=== PATIENT | male | born 1975 | race Caucasian/White ===

== ENCOUNTER 2022-10-08 22:21 | Inpatient (IN) | payer MEDICARE, MEDICAID, SELFPAY ==
--- NOTE | 2022-10-09 | ECG_ITS ---
Test Reason : ect Blood Pressure : / mmHG Vent. Rate : 070 BPM Atrial Rate : 070 BPM P-R Int : 142 ms QRS Dur : 084 ms QT Int : 384 ms P-R-T Axes : 077 066 065 degrees QTc Int : 414 ms Normal sinus rhythm Normal ECG No previous ECGs available Referred By: Nikolas Lopez Electronically Signed By:AFIA CHRISTINA
[2022-10-09 00:26] VITALS: BMI 23.0
[2022-10-09] MEDS: LORazepam 1 MG TABLET PO ×3 (00:57→22:19)
[2022-10-09] MEDS: Acetaminophen 325 MG TABLET 650 MG PO ×2 (00:58→09:35)
[2022-10-09] MEDS: Zolpidem Tartrate 5 MG TABLET 10 MG PO (00:58)
[2022-10-09] MEDS: traZODone HCL 50 MG TABLET PO ×2 (00:59→22:19)
--- NOTE | 2022-10-09 02:36 | PC.ADMIT ---
A white, Iranian-speaking male aged 46 years was admitted to the [facility] CV at 2230 following referral from [facility] and the [facility] team. Pt is not known to [facility] but pt reports he has had more than 50 IPLOC in the past. Pt has also had inpatient admissions for Etoh and substances. Pt self-presented to [place] [facility] endorsing SI with plan to jump in front of a train. Pt has a history of numerous suicide attempts. Pt drinks Etoh daily between 2 and 20 or more nips; pt says when he drinks fewer than 5 drinks daily he begins to have withdrawal symptoms. GALARZA was positive for cocaine and marijuana; BAL was 161. Pt had recently been at the [facility] but had left due to pt feeling he needed mental health treatment first. Pt had recently been discharged from [facility] [place] and pt had thought that benzodiazepines prescribed there during admission would be continued upon discharge. Pt felt he was left w/o meds he needed for anxiety. Pt reports current meds not helping and that his outside prescriber was going to switch from lithium.Pt stated he has tried many medications over the years that have not helped; pt said he is interested in finding out if ECT can help him. Pt is recently from his and they are pursuing a divorce. Pt is currently living with his parents and adult sister; housing is stable. Pt has a psychiatric medication provider but no therapist. Pt said is not interested in a therapist at this time. Pt was calm and cooperative on arrival. Pt states anxiety is 6-7/10, depression 8/10, PERAZA pain 3-4/10. Pt denies SI/HI and AH/VH. Pt states he can seek help from staff if needed. Pt reports ongoing difficulty sleeping, with frequent awakening and waking up drenched with sweat. Pt denies medical issues other than a history of right shoulder dislocation. Pt is resting in his room on 5 minute safety checks at this time. Nurse to Nurse done, initial treatment plan done and admission orders obtained.
[2022-10-09 08:00] VITALS: BP 117/65; PULSE 64; RESP 16; TEMP 36.6; O2SAT 96
[2022-10-09 09:12] LABS: Estimated Average Glucose 91 mg/dL; Hemoglobin A1c % 4.8 %
[2022-10-09 09:23] LABS: Alanine Aminotransferase 23 U/L (0-40); Albumin Level 3.6 g/dL (3.5-5.0); Alkaline Phosphatase 28 U/L (39-117); Anion Gap 11 (12-20); Aspartate Amino Transferase 20 U/L (5-37); Bilirubin Total 1.1 mg/dL (0.0-1.0); Blood Urea Nitrogen 17 mg/dL (9-16); Calcium 8.6 mg/dL (8.4-10.2); Carbon Dioxide 25 mmol/L (22-29); Chloride 105 mmol/L (96-108); Cholesterol 225 mg/dL; Creatinine Clr Calc Pharmacy 114.3; Estimated Glomerular Filt Rate > 60; Glucose Fasting 99 mg/dL (60-99); HDL Cholesterol 60 mg/dL; LDL Cholesterol Calculated 126 mg/dl; Sodium 137 mmol/L (135-145); Total Protein 5.9 g/dL (6.5-8.0); Triglycerides 195 mg/dL
[2022-10-09 09:54] LABS: Folate 16.4 ng/mL (> or = 4.0); Thyroid Stimulating Hormone 2.65 uIU/mL (0.32-4.0); Vitamin B12 656 pg/mL (200-900)
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
[2022-10-09] MEDS: LORazepam 1 MG TABLET 2 MG PO ×2 (12:25→18:18)
[2022-10-09] MEDS: Nicotine 21 MG PATCH.TD24 TRANSDERMA (14:24)
[2022-10-09] MEDS: Gabapentin 300 MG CAPSULE PO ×2 (14:25→20:43)
[2022-10-09 17:55] VITALS: BP 133/73; PULSE 69; RESP 16; TEMP 36.1; O2SAT 100
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
[2022-10-09] MEDS: Thiamine HCL 100 MG TABLET PO (20:44)
[2022-10-09] MEDS: Folic Acid 1 MG TABLET PO (20:44)
[2022-10-10] MEDS: traZODone HCL 50 MG TABLET PO ×3 (00:42→22:34)
[2022-10-10] MEDS: hydrOXYzine HCL 25 MG TABLET PO ×3 (00:42→20:47)
[2022-10-10] MEDS: LORazepam 1 MG TABLET 2 MG PO ×3 (02:29→20:51)
[2022-10-10 08:01] VITALS: BP 98/60; PULSE 62; RESP 16; TEMP 36.6; O2SAT 95
[2022-10-10] MEDS: Nicotine 21 MG PATCH.TD24 TRANSDERMA (08:20)
[2022-10-10] MEDS: Thiamine HCL 100 MG TABLET PO (08:21)
[2022-10-10] MEDS: Folic Acid 1 MG TABLET PO (08:21)
[2022-10-10] MEDS: Gabapentin 300 MG CAPSULE PO ×3 (08:22→20:48)
[2022-10-10] MEDS: LORazepam 1 MG TABLET PO ×3 (12:17→16:24)
[2022-10-10] MEDS: Acetaminophen 325 MG TABLET 650 MG PO ×2 (12:17→20:46)
[2022-10-10 16:10] VITALS: BP 119/76; PULSE 84; TEMP 36.3
--- NOTE | 2022-10-10 16:37 | HO.PSYCHPN ---
Subjective Subjective Date of Service: 10/10/22 Reason For Visit: unspecified bipolar disorder, alcohol d/o severe Interim History: calm, cooperative. states he is quite depressed and numerous med trials have not worked. he also relapses to alcohol use when depressed. continuing to detox presently. requesting ECT. Mental Status Exam Mental Status Exam Narrative: Pt is alert and oriented; behavior is cooperative, calm; patient is not in distress; dressed in hospital attire, tatooed, large earring holes, unkempt and scruffy; mood is described as depressed...anxious and affect congruent, downcast; eye contact appropriate; Speech is normal rate but a little lower volume; normal and prosody and not pressured; psychomotor retardation present; thought process is organized and goal directed; Thought content is feeling hopeless but also on tx; otherwise pertinent to relevant topics and without any delusional content, paranoid ideations or grandiosity; no SI/HI/AVH expressed. There is no evidence of perceptual disturbance. Patients insight and judgment appear intact. Diagnostics Vital Signs (24Hr): Vital Signs - 24 hr 10/09/22 17:55 10/10/22 08:01 Temperature 97 F 97.8 F Pulse Rate 69 62 Respiratory Rate 16 16 Blood Pressure 133/73 98/60 Pulse Oximetry 100 95 Oxygen Delivery Method Room Air Room Air BMI result Body Mass Index 23.0 Labs 10/09/22 08:22 Labs: Laboratory Results - last 48 hr 10/09/22 10/09/22 08:22 08:22 Sodium 137 Potassium 4.0 Chloride 105 Carbon Dioxide 25 Anion Gap 11 L BUN 17 H Creatinine 0.89 Estim Creat Clear Calc 114.3 Estimated GFR > 60 Fasting Glucose 99 Estimat Average Glucose 91 Hemoglobin A1c % 4.8 Calcium 8.6 Total Bilirubin 1.1 H AST 20 ALT 23 Alkaline Phosphatase 28 L Total Protein 5.9 L Albumin 3.6 Triglycerides 195 Cholesterol 225 LDL Cholesterol, Calc 126 HDL Cholesterol 60 Vitamin B12 656 Folate 16.4 TSH 2.65 Medications Medications Current Medications Acetaminophen (Acetaminophen 325 Mg Tablet) 650 mg PO Q6H PRN PRN Reason: Headache/Pain Mild Scale (1-3) Last Admin: 10/10/22 12:17 Dose: 650 mg Al Hydroxide/Mg Hydroxide (Magnesium Hydrox/Alum Hydrox 30 Ml Oral.Susp) 30 ml PO Q6H PRN PRN Reason: Heartburn/Nausea Folic Acid (Folic Acid 1 Mg Tablet) 1 mg PO DAILY [facility] Last Admin: 10/10/22 08:21 Dose: 1 mg Gabapentin (Gabapentin 300 Mg Capsule) 300 mg PO TID [facility] Stop: 10/11/22 23:50 Last Admin: 10/10/22 14:15 Dose: 300 mg Gabapentin (Gabapentin 300 Mg Capsule) 300 mg PO BID [facility] Stop: 10/13/22 23:50 Hydroxyzine HCl (Hydroxyzine Hcl 25 Mg Tablet) 25 mg PO Q6H PRN PRN Reason: Anxiety Last Admin: 10/10/22 12:17 Dose: 25 mg Lorazepam (Lorazepam 1 Mg Tablet) 1 mg PO Q2H PRN PRN Reason: CIWA 8-11 Last Admin: 10/10/22 16:24 Dose: 1 mg Lorazepam (Lorazepam 1 Mg Tablet) 2 mg PO Q2H PRN PRN Reason: CIWA 12-15 Lorazepam (Lorazepam 1 Mg Tablet) 3 mg PO Q2H PRN PRN Reason: CIWA > 15; and call Magnesium Hydroxide (Milk Of Magnesia 30 Ml Oral.Susp) 30 ml PO DAILY PRN PRN Reason: Constipation Nicotine (Nicotine 21 Mg Patch.Td24) 21 mg TRANSDERMA DAILY [facility] Last Admin: 10/10/22 08:20 Dose: 21 mg Nicotine Polacrilex (Nicotine Polacrilex 2 Mg Gum) 4 mg BUCCAL Q2H PRN PRN Reason: nicotine cravings Thiamine HCl (Thiamine Hcl 100 Mg Tablet) 100 mg PO DAILY [facility] Last Admin: 10/10/22 08:21 Dose: 100 mg Trazodone HCl (Trazodone Hcl 50 Mg Tablet) 50 mg PO BEDTIME MRX1 PRN PRN Reason: Insomnia Last Admin: 10/10/22 00:42 Dose: 50 mg Zolpidem Tartrate (Zolpidem Tartrate 5 Mg Tablet) 10 mg PO BEDTIME PRN PRN Reason: Insomnia Last Admin: 10/09/22 00:58 Dose: 10 mg Allergies Allergies Allergy/AdvReac Type Severity Reaction Status Date / Time sulfamethoxazole AdvReac Unknown aceptic Verified 10/09/22 07:21 [From Bactrim] meningitis trimethoprim [From Bactrim] AdvReac Unknown aceptic Verified 10/09/22 07:21 meningitis Assessment & Plan Assessment & Plan (1) MDD (major depressive disorder), recurrent episode, severe: Status: Acute Code(s): F33.2 - Major depressive disorder, recurrent severe without psychotic features (2) PTSD (post-traumatic stress disorder): Status: Acute Code(s): F43.10 - Post-traumatic stress disorder, unspecified (3) Alcohol use disorder, severe, dependence: Status: Acute Code(s): F10.20 - Alcohol dependence, uncomplicated (4) Alcohol withdrawal: Status: Acute Code(s): F10.939 - Alcohol use, unspecified with withdrawal, unspecified Plan Patient is a 46-year-old male with history of refractory depression, alcohol abuse who presents for continued depression with SI. Patient reports long history of depression dating back to childhood. He says he gets admitted to psychiatric hospitals about 3 to 4 times a year for severe depression. -chronic alcoholism for years complicates presentation; numerous medication trials many at adequate doses but most often concurrent with alcohol abuse -considering ECT; discussed with patient Plan: 10/09: CV: Q 15 minute checks CIWA with Ativan for alcohol withdrawal Will start gabapentin with taper for alcohol withdrawal Placed ECT consult with Dr. Wooten 10/10: ativan PRN per CIWA protocol. gabapentin taper in place. ECT consult placed to Dr. Wooten. EKG WNL. medical consult placed for ECT clearance. Medication trials: Prozac, Zoloft, Lexapro, Effexor, Wellbutrin, Abilify, Risperdal, Seroquel, Zyprexa, Latuda, Tegretol, lithium Reason for contiued inpatient stay Substantial Risk for: harm to self, inability to function and rapid decompensation Time Spent With Patient Time: Total time managing care of this patient today ____ minutes.
[2022-10-10] MEDS: Zolpidem Tartrate 5 MG TABLET 10 MG PO (21:37)
[2022-10-10] MEDS: Magnesium Hydrox/Alum Hydrox 30 ML ORAL.SUSP PO (22:35)
[2022-10-11] MEDS: LORazepam 1 MG TABLET 2 MG PO ×5 (00:07→19:37)
[2022-10-11 07:00] VITALS: BMI 23.6
[2022-10-11 08:27] VITALS: BP 100/56; PULSE 63; RESP 16; TEMP 36.6; O2SAT 98
[2022-10-11] MEDS: Thiamine HCL 100 MG TABLET PO (08:33)
[2022-10-11] MEDS: Folic Acid 1 MG TABLET PO (08:33)
[2022-10-11] MEDS: Gabapentin 300 MG CAPSULE PO ×3 (08:33→21:30)
[2022-10-11] MEDS: Nicotine 21 MG PATCH.TD24 TRANSDERMA (08:35)
--- NOTE | 2022-10-11 14:11 | HO.PSYCHPN ---
Subjective Subjective Date of Service: 10/11/22 Reason For Visit: unspecified bipolar disorder, alcohol d/o severe Interim History: calm, cooperative. feeling wicked depressed. informed ativan taper would be ordered. seen by dr. marks, not yet by hospitalist for ECT clearance. c/o poor sleep last night. asks for trazodone to be increased to 150 mg at HS with 50 mg PRN, which is done. Mental Status Exam Mental Status Exam Narrative: Pt is alert and oriented; behavior is cooperative, calm; patient is not in distress; dressed in street attire, tatooed, large earring holes, adequately groomed; mood is described as wicked depressed and affect congruent; eye contact appropriate; Speech is normal rate but a little lower volume; normal and prosody and not pressured; psychomotor retardation present; thought process is organized and goal directed; Thought content is on Tx; otherwise pertinent to relevant topics and without any delusional content, paranoid ideations or grandiosity; no SI/HI/AVH expressed. There is no evidence of perceptual disturbance. Patients insight and judgment appear intact. Diagnostics Vital Signs (24Hr): Vital Signs - 24 hr 10/10/22 16:10 10/11/22 08:27 Temperature 97.4 F 97.8 F Pulse Rate 84 63 Respiratory Rate 16 Blood Pressure 119/76 100/56 L Pulse Oximetry 98 Oxygen Delivery Method Room Air BMI result Body Mass Index 23.6 Labs 10/09/22 08:22 Medications Medications Current Medications Acetaminophen (Acetaminophen 325 Mg Tablet) 650 mg PO Q6H PRN PRN Reason: Headache/Pain Mild Scale (1-3) Last Admin: 10/10/22 20:46 Dose: 650 mg Al Hydroxide/Mg Hydroxide (Magnesium Hydrox/Alum Hydrox 30 Ml Oral.Susp) 30 ml PO Q6H PRN PRN Reason: Heartburn/Nausea Last Admin: 10/10/22 22:35 Dose: 30 ml Folic Acid (Folic Acid 1 Mg Tablet) 1 mg PO DAILY [facility] Last Admin: 10/11/22 08:33 Dose: 1 mg Gabapentin (Gabapentin 300 Mg Capsule) 300 mg PO TID FINN Stop: 10/11/22 23:50 Last Admin: 10/11/22 08:33 Dose: 300 mg Gabapentin (Gabapentin 300 Mg Capsule) 300 mg PO BID [facility] Stop: 10/13/22 23:50 Hydroxyzine HCl (Hydroxyzine Hcl 25 Mg Tablet) 25 mg PO Q6H PRN PRN Reason: Anxiety Last Admin: 10/10/22 20:47 Dose: 25 mg Lorazepam (Lorazepam 1 Mg Tablet) 2 mg PO ONCE ONE Stop: 10/11/22 21:01 Lorazepam (Lorazepam 0.5 Mg Tablet) 1.5 mg PO QID [facility] Stop: 10/12/22 21:01 Lorazepam (Lorazepam 1 Mg Tablet) 1 mg PO QID [facility] Stop: 10/13/22 21:01 Magnesium Hydroxide (Milk Of Magnesia 30 Ml Oral.Susp) 30 ml PO DAILY PRN PRN Reason: Constipation Nicotine (Nicotine 21 Mg Patch.Td24) 21 mg TRANSDERMA DAILY [facility] Last Admin: 10/11/22 08:35 Dose: 21 mg Nicotine Polacrilex (Nicotine Polacrilex 2 Mg Gum) 4 mg BUCCAL Q2H PRN PRN Reason: nicotine cravings Thiamine HCl (Thiamine Hcl 100 Mg Tablet) 100 mg PO DAILY [facility] Last Admin: 10/11/22 08:33 Dose: 100 mg Trazodone HCl (Trazodone Hcl 50 Mg Tablet) 150 mg PO BEDTIME FINN Trazodone HCl (Trazodone Hcl 50 Mg Tablet) 50 mg PO BEDTIME PRN PRN Reason: Insomnia Zolpidem Tartrate (Zolpidem Tartrate 5 Mg Tablet) 10 mg PO BEDTIME PRN PRN Reason: Insomnia Last Admin: 10/10/22 21:37 Dose: 10 mg Allergies Allergies Allergy/AdvReac Type Severity Reaction Status Date / Time sulfamethoxazole AdvReac Unknown aceptic Verified 10/09/22 07:21 [From Bactrim] meningitis trimethoprim [From Bactrim] AdvReac Unknown aceptic Verified 10/09/22 07:21 meningitis Assessment & Plan Assessment & Plan (1) MDD (major depressive disorder), recurrent episode, severe: Status: Acute Code(s): F33.2 - Major depressive disorder, recurrent severe without psychotic features (2) PTSD (post-traumatic stress disorder): Status: Acute Code(s): F43.10 - Post-traumatic stress disorder, unspecified (3) Alcohol use disorder, severe, dependence: Status: Acute Code(s): F10.20 - Alcohol dependence, uncomplicated (4) Alcohol withdrawal: Status: Acute Code(s): F10.939 - Alcohol use, unspecified with withdrawal, unspecified Plan Patient is a 46-year-old male with history of refractory depression, alcohol abuse who presents for continued depression with SI. Patient reports long history of depression dating back to childhood. He says he gets admitted to psychiatric hospitals about 3 to 4 times a year for severe depression. -chronic alcoholism for years complicates presentation; numerous medication trials many at adequate doses but most often concurrent with alcohol abuse -considering ECT; discussed with patient Plan: 10/09: CV: Q 15 minute checks CIWA with Ativan for alcohol withdrawal Will start gabapentin with taper for alcohol withdrawal Placed ECT consult with Dr. Marks 10/10: ativan PRN per CIWA protocol. gabapentin taper in place. ECT consult placed to Dr. Marks. EKG WNL. medical consult placed for ECT clearance. 10/11: ativan taper - 8 mg today, then 6, 4, 2. ECT planned for next week. seen by kendrick. awaiting hospitalist for ECT clearance. increased trazodone to 150 QHS with 50 PRN, otherwise no changes to regimen aside from ativan taper. Medication trials: Prozac, Zoloft, Lexapro, Effexor, Wellbutrin, Abilify, Risperdal, Seroquel, Zyprexa, Latuda, Tegretol, lithium Reason for contiued inpatient stay Substantial Risk for: harm to self, inability to function and rapid decompensation Time Spent With Patient Time: Total time managing care of this patient today __25__ minutes.
[2022-10-11] MEDS: Nicotine Polacrilex 2 MG GUM 4 MG BUCCAL ×2 (18:07→21:31)
[2022-10-11 19:25] VITALS: BP 132/64; PULSE 83; TEMP 36.9
[2022-10-11] MEDS: Zolpidem Tartrate 5 MG TABLET 10 MG PO (21:29)
[2022-10-11] MEDS: traZODone HCL 50 MG TABLET 150 MG PO (21:30)
[2022-10-12 06:00] VITALS: BP 96/72; PULSE 94; RESP 16; O2SAT 96
[2022-10-12] MEDS: LORazepam 0.5 MG TABLET 1.5 MG PO ×4 (08:27→19:03)
[2022-10-12] MEDS: Folic Acid 1 MG TABLET PO (08:27)
[2022-10-12] MEDS: Gabapentin 300 MG CAPSULE PO ×2 (08:27→20:03)
[2022-10-12] MEDS: Thiamine HCL 100 MG TABLET PO (08:28)
[2022-10-12] MEDS: Nicotine Polacrilex 2 MG GUM 4 MG BUCCAL (10:09)
--- NOTE | 2022-10-12 12:22 | P.PNPSI_ITS ---
Subjective Subjective Date of Service: 10/12/22 Reason For Visit: unspecified bipolar disorder, alcohol d/o severe Interim History: calm, cooperative. discuss ativan taper over the weekend and possibility of starting ECT as soon as saturday. reports he has not been seen for ECT clearance. only complaint other than depression is insomnia at the moment, requests trazodone be increased to 250 mg as of tonight, which is accommodated. Mental Status Exam Mental Status Exam Narrative: Pt is alert and oriented; behavior is cooperative, calm; patient is not in distress; dressed in street attire, tatooed, large earring holes, adequately groomed; affect constricted, hypo-intense; eye contact appropriate; Speech is normal rate but a little lower volume; normal prosody and not pressured; psychomotor retardation present; thought process is organized and goal directed; Thought content is on Tx; otherwise pertinent to relevant topics and without any delusional content, paranoid ideations or grandiosity; no SI/HI/AVH expressed. There is no evidence of perceptual disturbance. Patients insight and judgment appear intact. Diagnostics Vital Signs (24Hr): Vital Signs - 24 hr 10/11/22 19:25 10/12/22 06:00 Temperature 98.4 F Pulse Rate 83 94 Respiratory Rate 16 Blood Pressure 132/64 96/72 Pulse Oximetry 96 Oxygen Delivery Method Room Air BMI result Body Mass Index 23.6 Labs 10/09/22 08:22 Medications Medications Current Medications Acetaminophen (Acetaminophen 325 Mg Tablet) 650 mg PO Q6H PRN PRN Reason: Headache/Pain Mild Scale (1-3) Last Admin: 10/10/22 20:46 Dose: 650 mg Al Hydroxide/Mg Hydroxide (Magnesium Hydrox/Alum Hydrox 30 Ml Oral.Susp) 30 ml PO Q6H PRN PRN Reason: Heartburn/Nausea Last Admin: 10/10/22 22:35 Dose: 30 ml Folic Acid (Folic Acid 1 Mg Tablet) 1 mg PO DAILY [facility] Last Admin: 10/12/22 08:27 Dose: 1 mg Gabapentin (Gabapentin 300 Mg Capsule) 300 mg PO BID [facility] Stop: 10/13/22 23:50 Last Admin: 10/12/22 08:27 Dose: 300 mg Hydroxyzine HCl (Hydroxyzine Hcl 25 Mg Tablet) 25 mg PO Q6H PRN PRN Reason: Anxiety Last Admin: 02/22/23 20:47 Dose: 25 mg Lorazepam (Lorazepam 0.5 Mg Tablet) 1.5 mg PO QID [facility] Stop: 10/12/22 21:01 Last Admin: 10/12/22 12:16 Dose: 1.5 mg Lorazepam (Lorazepam 1 Mg Tablet) 1 mg PO QID [facility] Stop: 10/13/22 21:01 Lorazepam (Lorazepam 0.5 Mg Tablet) 0.5 mg PO QID [facility] Stop: 10/14/22 21:01 Magnesium Hydroxide (Milk Of Magnesia 30 Ml Oral.Susp) 30 ml PO DAILY PRN PRN Reason: Constipation Nicotine (Nicotine 21 Mg Patch.Td24) 21 mg TRANSDERMA DAILY [facility] Last Admin: 10/12/22 08:30 Dose: Not Given Nicotine Polacrilex (Nicotine Polacrilex 2 Mg Gum) 4 mg BUCCAL Q2H PRN PRN Reason: nicotine cravings Last Admin: 10/12/22 10:09 Dose: 4 mg Thiamine HCl (Thiamine Hcl 100 Mg Tablet) 100 mg PO DAILY [facility] Last Admin: 10/12/22 08:28 Dose: 100 mg Trazodone HCl (Trazodone Hcl 50 Mg Tablet) 50 mg PO BEDTIME PRN PRN Reason: Insomnia Trazodone HCl (Trazodone Hcl 100 Mg Tablet) 250 mg PO BEDTIME FINN Zolpidem Tartrate (Zolpidem Tartrate 5 Mg Tablet) 10 mg PO BEDTIME PRN PRN Reason: Insomnia Last Admin: 10/11/22 21:29 Dose: 10 mg Allergies Allergies Allergy/AdvReac Type Severity Reaction Status Date / Time sulfamethoxazole AdvReac Unknown aceptic Verified 10/09/22 07:21 [From Bactrim] meningitis trimethoprim [From Bactrim] AdvReac Unknown aceptic Verified 10/09/22 07:21 meningitis Assessment & Plan Assessment & Plan (1) MDD (major depressive disorder), recurrent episode, severe: Status: Acute Code(s): F33.2 - Major depressive disorder, recurrent severe without psychotic features (2) PTSD (post-traumatic stress disorder): Status: Acute Code(s): F43.10 - Post-traumatic stress disorder, unspecified (3) Alcohol use disorder, severe, dependence: Status: Acute Code(s): F10.20 - Alcohol dependence, uncomplicated (4) Alcohol withdrawal: Status: Acute Code(s): F10.939 - Alcohol use, unspecified with withdrawal, unspecified Plan Patient is a 46-year-old male with history of refractory depression, alcohol abuse who presents for continued depression with SI.? Patient reports long history of depression dating back to childhood.? He says he gets admitted to psychiatric hospitals about 3 to 4 times a year for severe depression.? -chronic alcoholism for years complicates presentation; numerous medication trials many at adequate doses but most often concurrent with alcohol abuse -considering ECT; discussed with patient Plan: 10/09: CV: Q 15 minute checks CIWA with Ativan for alcohol withdrawal Will start gabapentin with taper for alcohol withdrawal Placed ECT consult with Dr. Wooten 10/10: ativan PRN per CIWA protocol.? gabapentin taper in place. ECT consult placed to Dr. Wooten. EKG WNL. medical consult placed for ECT clearance. 10/11: ativan taper - 8 mg today, then 6, 4, 2. ECT planned for next week. seen by kendrick. awaiting hospitalist for ECT clearance. increased trazodone to 150 QHS with 50 PRN, otherwise no changes to regimen aside from ativan taper. 10/12: ativan taper - 6 mg today, 4 saturday, 2 saturday[address] [facility] will arrange for ECT clearance per personal communication. increased trazodone to 250 mg QHS per pt request, otherwise no changes in mgmt. awaiting ECT clearance and scheduling. Medication trials: Prozac, Zoloft, Lexapro, Effexor, Wellbutrin, Abilify, Risperdal, Seroquel, Zyprexa, Latuda, Tegretol, lithium Reason for contiued inpatient stay Substantial Risk for: harm to self, inability to function and rapid decompensation Time Spent With Patient Time: Total time managing care of this patient today _25___ minutes.
--- NOTE | 2022-10-12 12:27 | PM.EVENT ---
Event Note Date of Service: 10/12/22 Event Note: Patient has no hx brain mass or reported anesthesia complications Has hx of alcohol withdrawal seizure, not on seizure medications as outpatient EKG normal No known contraindications, can proceed with ECT if needed. Time Spent With Patient Time: Total time managing care of this patient today ____ minutes.
[2022-10-12 19:00] VITALS: BP 111/75; PULSE 96; RESP 14; TEMP 36.8
[2022-10-12] MEDS: Zolpidem Tartrate 5 MG TABLET 10 MG PO (20:02)
[2022-10-12] MEDS: traZODone HCL 100 MG TABLET 250 MG PO (20:02)
[2022-10-12] MEDS: Acetaminophen 325 MG TABLET 650 MG PO (20:05)
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
[2022-10-12] MEDS: hydrOXYzine HCL 25 MG TABLET PO (23:18)
[2022-10-12] MEDS: traZODone HCL 50 MG TABLET PO (23:18)
[2022-10-13 08:00] VITALS: BP 106/65; PULSE 78; TEMP 36.8; O2SAT 97
[2022-10-13] MEDS: Thiamine HCL 100 MG TABLET PO (08:32)
[2022-10-13] MEDS: Folic Acid 1 MG TABLET PO (08:32)
[2022-10-13] MEDS: LORazepam 1 MG TABLET PO ×4 (08:32→20:43)
[2022-10-13] MEDS: Gabapentin 300 MG CAPSULE PO ×2 (08:32→20:42)
[2022-10-13] MEDS: Ondansetron ODT 4 MG TAB.RAPDIS TRANSLINGU (10:38)
--- NOTE | 2022-10-13 12:25 | HO.PSYCHPN ---
Subjective Subjective Date of Service: 10/13/22 Reason For Visit: unspecified bipolar disorder, alcohol d/o severe Interim History: Patient reports he is feeling anxious. We discuss ECT. He feels that because of his ETOH withdrawals he won't be ready by Saturday. He would like to start Saturday instead. He was seen by medicine for clearance. He slept somewhat better. Denies SI. Mental Status Exam Mental Status Exam Narrative: Has multiple tattoos Patient Appearance: Appropriate Patient Orientation: Person, Place, Time and Situation Level of Consciousness: Awake and Appropriate Patient Behavior: Appropriate, Talkative and Cooperative Mood Description: Depressed and Blunted Affect Description: Appropriate and Constricted Patient Cognition Impaired: No Ability to Follow Directions: Good Speech Pattern: Clear Memory Description: Intact Diagnostics Vital Signs (24Hr): Vital Signs - 24 hr 10/13/22 08:00 10/13/22 18:00 Temperature 98.2 F 98.7 F Pulse Rate 78 86 Blood Pressure 106/65 115/55 L Pulse Oximetry 97 98 Oxygen Delivery Method Room Air Room Air BMI result Body Mass Index 23.6 Labs 10/09/22 08:22 Medications Medications Current Medications Acetaminophen (Acetaminophen 325 Mg Tablet) 650 mg PO Q6H PRN PRN Reason: Headache/Pain Mild Scale (1-3) Last Admin: 10/12/22 20:05 Dose: 650 mg Al Hydroxide/Mg Hydroxide (Magnesium Hydrox/Alum Hydrox 30 Ml Oral.Susp) 30 ml PO Q6H PRN PRN Reason: Heartburn/Nausea Last Admin: 10/10/22 22:35 Dose: 30 ml Folic Acid (Folic Acid 1 Mg Tablet) 1 mg PO DAILY [facility] Last Admin: 10/13/22 08:32 Dose: 1 mg Gabapentin (Gabapentin 300 Mg Capsule) 300 mg PO BID [facility] Stop: 10/13/22 23:50 Last Admin: 10/13/22 20:42 Dose: 300 mg Hydroxyzine HCl (Hydroxyzine Hcl 25 Mg Tablet) 25 mg PO Q6H PRN PRN Reason: Anxiety Last Admin: 10/12/22 23:18 Dose: 25 mg Lorazepam (Lorazepam 0.5 Mg Tablet) 0.5 mg PO QID [facility] Stop: 10/14/22 21:01 Magnesium Hydroxide (Milk Of Magnesia 30 Ml Oral.Susp) 30 ml PO DAILY PRN PRN Reason: Constipation Nicotine (Nicotine 21 Mg Patch.Td24) 21 mg TRANSDERMA DAILY [facility] Last Admin: 10/13/22 08:36 Dose: Not Given Nicotine Polacrilex (Nicotine Polacrilex 2 Mg Gum) 4 mg BUCCAL Q2H PRN PRN Reason: nicotine cravings Last Admin: 10/12/22 10:09 Dose: 4 mg Ondansetron HCl (Ondansetron Odt 4 Mg Tab.Rapdis) 4 mg TRANSLINGU Q6H PRN PRN Reason: nausea vomiting Last Admin: 10/13/22 10:38 Dose: 4 mg Thiamine HCl (Thiamine Hcl 100 Mg Tablet) 100 mg PO DAILY [facility] Last Admin: 10/13/22 08:32 Dose: 100 mg Trazodone HCl (Trazodone Hcl 50 Mg Tablet) 50 mg PO BEDTIME PRN PRN Reason: Insomnia Last Admin: 10/12/22 23:18 Dose: 50 mg Trazodone HCl (Trazodone Hcl 100 Mg Tablet) 250 mg PO BEDTIME [facility] Last Admin: 10/13/22 20:56 Dose: 250 mg Zolpidem Tartrate (Zolpidem Tartrate 5 Mg Tablet) 10 mg PO BEDTIME PRN PRN Reason: Insomnia Last Admin: 10/13/22 20:41 Dose: 10 mg Allergies Allergies Allergy/AdvReac Type Severity Reaction Status Date / Time sulfamethoxazole AdvReac Unknown aceptic Verified 10/09/22 07:21 [From Bactrim] meningitis trimethoprim [From Bactrim] AdvReac Unknown aceptic Verified 10/09/22 07:21 meningitis Assessment & Plan Assessment & Plan (1) MDD (major depressive disorder), recurrent episode, severe: Status: Acute Code(s): F33.2 - Major depressive disorder, recurrent severe without psychotic features (2) PTSD (post-traumatic stress disorder): Status: Acute Code(s): F43.10 - Post-traumatic stress disorder, unspecified (3) Alcohol use disorder, severe, dependence: Status: Acute Code(s): F10.20 - Alcohol dependence, uncomplicated Plan Patient is a 46-year-old male with history of refractory depression, alcohol abuse who presents for continued depression with SI.? Patient reports long history of depression dating back to childhood.? He says he gets admitted to psychiatric hospitals about 3 to 4 times a year for severe depression.? -chronic alcoholism for years complicates presentation; numerous medication trials many at adequate doses but most often concurrent with alcohol abuse -considering ECT; discussed with patient Plan: 10/09: CV: Q 15 minute checks CIWA with Ativan for alcohol withdrawal Will start gabapentin with taper for alcohol withdrawal Placed ECT consult with Dr. Wooten 10/10: ativan PRN per CIWA protocol.? gabapentin taper in place. ECT consult placed to Dr. Wooten. EKG WNL. medical consult placed for ECT clearance. 10/11: ativan taper - 8 mg today, then 6, 4, 2. ECT planned for next week. seen by kendrick. awaiting hospitalist for ECT clearance. increased trazodone to 150 QHS with 50 PRN, otherwise no changes to regimen aside from ativan taper. 10/12: ativan taper - 6 mg today, 4 saturday, 2 saturday. [facility] will arrange for ECT clearance per personal communication. increased trazodone to 250 mg QHS per pt request, otherwise no changes in mgmt. awaiting ECT clearance and scheduling. Medication trials: Prozac, Zoloft, Lexapro, Effexor, Wellbutrin, Abilify, Risperdal, Seroquel, Zyprexa, Latuda, Tegretol, lithium Reason for contiued inpatient stay Substantial Risk for: harm to self, inability to function and rapid decompensation Time Spent With Patient Time: Total time managing care of this patient today ____ minutes.
[2022-10-13 18:00] VITALS: BP 115/55; PULSE 86; TEMP 37.1; O2SAT 98
[2022-10-13] MEDS: Zolpidem Tartrate 5 MG TABLET 10 MG PO (20:41)
[2022-10-13] MEDS: traZODone HCL 100 MG TABLET 250 MG PO ×2 (20:56→23:01)
--- NOTE | 2022-10-13 23:02 | PC.NURSE ---
Addendum entered by Mariia Dow RN 10/13/22 23:06: Vital signs were obtained, blood pressure 115/59 with heart rate 78 using an automated cuff on the left upper arm, with patient in a seated position. Original Note: Patient has had his night medications, including Ambien 10 mg po and Trazadone 250 mg. po. He is still wide awake and stating I can't sleep, I'm wide awake. The last time I was on a benzo taper I was up for seven (7) days in a row. TW gave patient another dose of Trazadone 250 mg po as a repeat dose, as ordered.
[2022-10-13 23:06] VITALS: BP 115/59; PULSE 78
[2022-10-13] MEDS: Nicotine Polacrilex 2 MG GUM 4 MG BUCCAL (23:19)
[2022-10-14 06:00] VITALS: BP 110/60; PULSE 80
[2022-10-14] MEDS: Folic Acid 1 MG TABLET PO (08:51)
[2022-10-14] MEDS: LORazepam 0.5 MG TABLET PO ×4 (08:51→19:43)
[2022-10-14] MEDS: Thiamine HCL 100 MG TABLET PO (08:51)
--- NOTE | 2022-10-14 12:35 | P.PNPSI_ITS ---
Subjective Subjective Date of Service: 10/14/22 Reason For Visit: unspecified bipolar disorder, alcohol d/o severe Interim History: Patient reports he continues feeling anxious and having insomnia in spite of the medications he takes at HS. He reports he was on Seroquel in the past and is willing to try it again to see if it helps him sleep. He feels the Ativan taper is going too fast and asking to extend the taper. He is anxious appearing. He is not having any VS instability. We discuss ECT. He feels that because of his ETOH withdrawals he won't be ready by Saturday. He would like to start Saturday instead. He was seen by medicine for clearance. Denies SI. Mental Status Exam Mental Status Exam Narrative: Has multiple tattoos Patient Appearance: Appropriate Patient Orientation: Person, Place, Time and Situation Level of Consciousness: Awake and Appropriate Patient Behavior: Appropriate, Talkative and Cooperative Mood Description: Depressed and Blunted Affect Description: Appropriate and Constricted Patient Cognition Impaired: No Ability to Follow Directions: Good Speech Pattern: Clear Memory Description: Intact Diagnostics Vital Signs (24Hr): Vital Signs - 24 hr 10/13/22 23:06 10/14/22 06:00 10/14/22 19:55 Temperature 97.8 F Pulse Rate 78 80 73 Blood Pressure 115/59 L 110/60 97/55 L Pulse Oximetry 98 Oxygen Delivery Method Room Air BMI result Body Mass Index 23.6 Labs 10/09/22 08:22 Medications Medications Current Medications Acetaminophen (Acetaminophen 325 Mg Tablet) 650 mg PO Q6H PRN PRN Reason: Headache/Pain Mild Scale (1-3) Last Admin: 10/12/22 20:05 Dose: 650 mg Al Hydroxide/Mg Hydroxide (Magnesium Hydrox/Alum Hydrox 30 Ml Oral.Susp) 30 ml PO Q6H PRN PRN Reason: Heartburn/Nausea Last Admin: 10/10/22 22:35 Dose: 30 ml Folic Acid (Folic Acid 1 Mg Tablet) 1 mg PO DAILY [facility] Last Admin: 10/14/22 08:51 Dose: 1 mg Hydroxyzine HCl (Hydroxyzine Hcl 25 Mg Tablet) 25 mg PO Q6H PRN PRN Reason: Anxiety Last Admin: 10/12/22 23:18 Dose: 25 mg Lorazepam (Lorazepam 0.5 Mg Tablet) 0.5 mg PO QID [facility] Stop: 10/15/22 21:01 Last Admin: 10/14/22 19:43 Dose: 0.5 mg Magnesium Hydroxide (Milk Of Magnesia 30 Ml Oral.Susp) 30 ml PO DAILY PRN PRN Reason: Constipation Nicotine (Nicotine 21 Mg Patch.Td24) 21 mg TRANSDERMA DAILY [facility] Last Admin: 10/14/22 08:51 Dose: Not Given Nicotine Polacrilex (Nicotine Polacrilex 2 Mg Gum) 4 mg BUCCAL Q2H PRN PRN Reason: nicotine cravings Last Admin: 10/14/22 15:49 Dose: 4 mg Ondansetron HCl (Ondansetron Odt 4 Mg Tab.Rapdis) 4 mg TRANSLINGU Q6H PRN PRN Reason: nausea vomiting Last Admin: 10/13/22 10:38 Dose: 4 mg Quetiapine Fumarate (Quetiapine Fumarate 50 Mg Tablet) 50 mg PO BEDTIME FINN Last Admin: 10/14/22 19:43 Dose: 50 mg Thiamine HCl (Thiamine Hcl 100 Mg Tablet) 100 mg PO DAILY [facility] Last Admin: 10/14/22 08:51 Dose: 100 mg Trazodone HCl (Trazodone Hcl 50 Mg Tablet) 50 mg PO BEDTIME PRN PRN Reason: Insomnia Last Admin: 10/12/22 23:18 Dose: 50 mg Trazodone HCl (Trazodone Hcl 100 Mg Tablet) 250 mg PO BEDTIME [facility] Last Admin: 10/14/22 19:43 Dose: 250 mg Zolpidem Tartrate (Zolpidem Tartrate 5 Mg Tablet) 10 mg PO BEDTIME [facility] Allergies Allergies Allergy/AdvReac Type Severity Reaction Status Date / Time sulfamethoxazole AdvReac Unknown aceptic Verified 10/09/22 07:21 [From Bactrim] meningitis trimethoprim [From Bactrim] AdvReac Unknown aceptic Verified 10/09/22 07:21 meningitis Assessment & Plan Assessment & Plan (1) MDD (major depressive disorder), recurrent episode, severe: Status: Acute Code(s): F33.2 - Major depressive disorder, recurrent severe without psychotic features (2) PTSD (post-traumatic stress disorder): Status: Acute Code(s): F43.10 - Post-traumatic stress disorder, unspecified (3) Alcohol use disorder, severe, dependence: Status: Acute Code(s): F10.20 - Alcohol dependence, uncomplicated Plan Patient is a 46-year-old male with history of refractory depression, alcohol abuse who presents for continued depression with SI.? Patient reports long history of depression dating back to childhood.? He says he gets admitted to psychiatric hospitals about 3 to 4 times a year for severe depression.? -chronic alcoholism for years complicates presentation; numerous medication trials many at adequate doses but most often concurrent with alcohol abuse -considering ECT; discussed with patient Plan: 10/09: CV: Q 15 minute checks CIWA with Ativan for alcohol withdrawal Will start gabapentin with taper for alcohol withdrawal Placed ECT consult with Dr. Wooten 10/10: ativan PRN per CIWA protocol.? gabapentin taper in place. ECT consult placed to Dr. Wooten. EKG WNL. medical consult placed for ECT clearance. 10/11: ativan taper - 8 mg today, then 6, 4, 2. ECT planned for next week. seen by kendrick. awaiting hospitalist for ECT clearance. increased trazodone to 150 QHS with 50 PRN, otherwise no changes to regimen aside from ativan taper. 10/12: ativan taper - 6 mg today, 4 saturday, 2 saturday. [facility] will arrange for ECT clearance per personal communication. increased trazodone to 250 mg QHS per pt request, otherwise no changes in mgmt. awaiting ECT clearance and scheduling. Medication trials: Prozac, Zoloft, Lexapro, Effexor, Wellbutrin, Abilify, Risperdal, Seroquel, Zyprexa, Latuda, Tegretol, lithium 10/14: Extend the Ativan taper. Reassess by primary team. Added Seroquel 50 mg HS. Reason for contiued inpatient stay Substantial Risk for: harm to self, inability to function and rapid decompensat ion Time Spent With Patient Time: Total time managing care of this patient today ____ minutes.
[2022-10-14] MEDS: Nicotine Polacrilex 2 MG GUM 4 MG BUCCAL (15:49)
[2022-10-14] MEDS: traZODone HCL 100 MG TABLET 250 MG PO (19:43)
[2022-10-14] MEDS: QUEtiapine Fumarate 50 MG TABLET PO (19:43)
[2022-10-14 19:55] VITALS: BP 97/55; PULSE 73; TEMP 36.6; O2SAT 98
[2022-10-14] MEDS: Zolpidem Tartrate 5 MG TABLET 10 MG PO (21:38)
--- NOTE | 2022-10-14 21:59 | PC.NURSE ---
Patient continues to report difficulty with sleeping and feels that he is still withdrawing from benzos. He said even though he feels tired he is not able to sleep. Ambien 10 mg po prn for sleep at was restarted by Dr. Gimenez.
[2022-10-15] MEDS: traZODone HCL 50 MG TABLET PO (01:06)
[2022-10-15] MEDS: hydrOXYzine HCL 25 MG TABLET PO (01:06)
[2022-10-15 08:00] VITALS: BP 107/61; PULSE 74; RESP 18; TEMP 36.3; O2SAT 100
[2022-10-15] MEDS: LORazepam 0.5 MG TABLET PO ×2 (08:10→12:52)
[2022-10-15] MEDS: Ondansetron ODT 4 MG TAB.RAPDIS TRANSLINGU (08:11)
[2022-10-15] MEDS: Magnesium Hydrox/Alum Hydrox 30 ML ORAL.SUSP PO (09:01)
--- NOTE | 2022-10-15 10:43 | HO.PSYCHPN ---
Subjective Subjective Date of Service: 10/15/22 Reason For Visit: unspecified bipolar disorder, alcohol d/o severe Interim History: Met with patient; discussed in teams; reviewed notes from covering provider Patient reports he remains depressed but suicidality has resolved. He feels that he is having a prolonged withdrawal and shares that he has been a daily alcoholic for 20 years as well as being on temazepam which he would he use while taking alcohol, sometimes taking a repeat dose; he thinks this is making his withdrawal continue and he reports feeling shaky at times, insomnia only sleeping in our last night and nauseous; patient did vomit and received Zofran. Discussed medications and patient agrees to gabapentin which he used to be on scheduled. He also agrees to changing Ativan taper to a Librium taper. Given his continued insomnia even at high doses of trazodone, agrees to discontinue trazodone; Seroquel also does not help with sleep and he used to take up to 800 mg a day. Instead patient agrees to try Zyprexa (patient reviewed risks/side effects of medication regimen with which patient understands and agrees to continue) Staff reports that several times patient had to be redirected to stay out of female peers room. Despite being told he went in again; despite being seen, he said he did not do so. [employer] discussed this with patient who says he will not go into any room at all other than his own for the remainder of this admission. Discussed case with Dr. Wooten who agrees to proceed with ECT this Saturday Diagnostics Vital Signs (24Hr): Vital Signs - 24 hr 10/14/22 19:55 10/15/22 08:00 Temperature 97.8 F 97.3 F Pulse Rate 73 74 Respiratory Rate 18 Blood Pressure 97/55 L 107/61 Pulse Oximetry 98 100 Oxygen Delivery Method Room Air Room Air BMI result Body Mass Index 23.6 Labs 10/09/22 08:22 Medications Medications Current Medications Acetaminophen (Acetaminophen 325 Mg Tablet) 650 mg PO Q6H PRN PRN Reason: Headache/Pain Mild Scale (1-3) Last Admin: 10/12/22 20:05 Dose: 650 mg Al Hydroxide/Mg Hydroxide (Magnesium Hydrox/Alum Hydrox 30 Ml Oral.Susp) 30 ml PO Q6H PRN PRN Reason: Heartburn/Nausea Last Admin: 10/15/22 09:01 Dose: 30 ml Folic Acid (Folic Acid 1 Mg Tablet) 1 mg PO DAILY [facility] Last Admin: 10/15/22 08:13 Dose: Not Given Hydroxyzine HCl (Hydroxyzine Hcl 25 Mg Tablet) 25 mg PO Q6H PRN PRN Reason: Anxiety Last Admin: 10/15/22 01:06 Dose: 25 mg Lorazepam (Lorazepam 0.5 Mg Tablet) 0.5 mg PO QID [facility] Stop: 10/15/22 21:01 Last Admin: 10/15/22 08:10 Dose: 0.5 mg Magnesium Hydroxide (Milk Of Magnesia 30 Ml Oral.Susp) 30 ml PO DAILY PRN PRN Reason: Constipation Nicotine (Nicotine 21 Mg Patch.Td24) 21 mg TRANSDERMA DAILY [facility] Last Admin: 10/14/22 08:51 Dose: Not Given Nicotine Polacrilex (Nicotine Polacrilex 2 Mg Gum) 4 mg BUCCAL Q2H PRN PRN Reason: nicotine cravings Last Admin: 10/14/22 15:49 Dose: 4 mg Ondansetron HCl (Ondansetron Odt 4 Mg Tab.Rapdis) 4 mg TRANSLINGU Q6H PRN PRN Reason: nausea vomiting Last Admin: 10/15/22 08:11 Dose: 4 mg Quetiapine Fumarate (Quetiapine Fumarate 50 Mg Tablet) 50 mg PO BEDTIME [facility] Last Admin: 10/14/22 19:43 Dose: 50 mg Thiamine HCl (Thiamine Hcl 100 Mg Tablet) 100 mg PO DAILY [facility] Last Admin: 10/15/22 08:14 Dose: Not Given Trazodone HCl (Trazodone Hcl 50 Mg Tablet) 50 mg PO BEDTIME PRN PRN Reason: Insomnia Last Admin: 10/15/22 01:06 Dose: 50 mg Trazodone HCl (Trazodone Hcl 100 Mg Tablet) 250 mg PO BEDTIME [facility] Last Admin: 10/14/22 19:43 Dose: 250 mg Zolpidem Tartrate (Zolpidem Tartrate 5 Mg Tablet) 10 mg PO BEDTIME PRN PRN Reason: Sleep Allergies Allergies Allergy/AdvReac Type Severity Reaction Status Date / Time sulfamethoxazole AdvReac Unknown aceptic Verified 10/09/22 07:21 [From Bactrim] meningitis trimethoprim [From Bactrim] AdvReac Unknown aceptic Verified 10/09/22 07:21 meningitis Assessment & Plan Assessment & Plan (1) MDD (major depressive disorder), recurrent episode, severe: Status: Acute Code(s): F33.2 - Major depressive disorder, recurrent severe without psychotic features (2) PTSD (post-traumatic stress disorder): Status: Acute Code(s): F43.10 - Post-traumatic stress disorder, unspecified (3) Alcohol use disorder, severe, dependence: Status: Acute Code(s): F10.20 - Alcohol dependence, uncomplicated Plan Patient is a 46-year-old male with history of refractory depression, alcohol abuse who presents for continued depression with SI.? Patient reports long history of depression dating back to childhood.? He says he gets admitted to psychiatric hospitals about 3 to 4 times a year for severe depression.? -chronic alcoholism for years complicates presentation; numerous medication trials many at adequate doses but most often concurrent with alcohol abuse -considering ECT; discussed with patient HOSPITAL COURSE: 10/10: ativan PRN per [facility] protocol.? gabapentin taper in place. ECT consult placed to Dr. Wooten. EKG WNL. medical consult placed for ECT clearance. 10/11: ativan taper - 8 mg today, then 6, 4, 2. ECT planned for next week. seen by kendrick. awaiting hospitalist for ECT clearance. increased trazodone to 150 QHS with 50 PRN, otherwise no changes to regimen aside from ativan taper. 10/12: ativan taper - 6 mg today, 4 saturday, 2 saturday. [facility] will arrange for ECT clearance per personal communication. increased trazodone to 250 mg QHS per pt request, otherwise no changes in mgmt. awaiting ECT clearance and scheduling. 10/14: Extend the Ativan taper. Reassess by primary team. Added Seroquel 50 mg HS. 10/15 Patient reports he remains depressed but suicidality has resolved. [employer] agrees that given patient's decades of severe alcohol abuse and benzo use, he indeed could be experiencing a prolonged withdrawal; will start him on Librium and gabapentin and taper from there. Patient having some behavioral/characterological issues, going into female peers room (invited), despite being told not to. [employer] discussed this with patient who says he will not go into any room at all other than his own for the remainder of this admission (if this behavior continues will consider discharge since there is some component of willful defiance) Discussed case with Dr. Wooten who agrees to proceed with ECT this Saturday Plan: CV: Q 5 minute checks (patient defined rules and going into female peers rooms) Start Zyprexa 10 mg q.h.s. to help with insomnia Will start on Librium 25 mg b.i.d.; will taper from there DC CIWA; DC Ativan Will start gabapentin 300 mg t.i.d.; with taper for alcohol withdrawal Discussed case with Dr. Wooten who agrees to proceed with ECT on Saturday ECT #1 pending 10/17/22 -discontinue Seroquel; not helping with sleep Discontinue trazodone; not help him sleep Medication trials: Prozac, Zoloft, Lexapro, Effexor, Wellbutrin, Abilify, Risperdal, Seroquel, Zyprexa, Latuda, Tegretol, lithium Patient educated on: diagnosis, medication risk/benefits, substance abuse and therapeutic strategies Informed Consent: understands Reason for contiued inpatient stay Substantial Risk for: med/psych decompensation Time Spent With Patient Time: Total time managing care of this patient today ____ minutes.
[2022-10-15 12:55] VITALS: BP 100/56; PULSE 72; RESP 18; O2SAT 100
[2022-10-15] MEDS: Gabapentin 300 MG CAPSULE PO ×2 (14:55→20:45)
[2022-10-15] MEDS: chlordiazePOXIDE HCl 25 MG CAPSULE PO ×2 (14:55→19:21)
--- NOTE | 2022-10-15 15:19 | PC.NURSE ---
pt was seen entering room of female pt. placed on 5min checks per charge nurse.
[2022-10-15 17:00] VITALS: BP 108/59; PULSE 68; RESP 18; TEMP 36.5; O2SAT 99
[2022-10-15] MEDS: Acetaminophen 325 MG TABLET 650 MG PO (19:47)
[2022-10-15] MEDS: OLANZapine 10 MG TABLET PO (20:44)
[2022-10-15] MEDS: Zolpidem Tartrate 5 MG TABLET 10 MG PO (20:44)
[2022-10-15] MEDS: Nicotine Polacrilex 2 MG GUM 4 MG BUCCAL (20:55)
[2022-10-16] MEDS: Nicotine Polacrilex 2 MG GUM 4 MG BUCCAL (03:36)
[2022-10-16] MEDS: chlordiazePOXIDE HCl 25 MG CAPSULE PO ×2 (08:37→20:09)
[2022-10-16] MEDS: Folic Acid 1 MG TABLET PO (08:37)
[2022-10-16] MEDS: Gabapentin 300 MG CAPSULE PO ×3 (08:37→20:08)
[2022-10-16] MEDS: Thiamine HCL 100 MG TABLET PO (08:37)
[2022-10-16 08:39] VITALS: BP 127/70; PULSE 62; RESP 18; TEMP 36.8; O2SAT 100
--- NOTE | 2022-10-16 10:33 | P.PNPSI_ITS ---
Subjective Subjective Date of Service: 10/16/22 Reason For Visit: unspecified bipolar disorder, alcohol d/o severe Interim History: met with patient; discussed in teams (staff reports that patient seems like he is in a good mood); discussed case with Dr. Wooten who agrees with cancelling ECT Patient says that he is doing much better. He he actually says that he is in a good mood and does not feel depressed at all, despite not being on any antidepressants. Translator And Interpreter and patient discussed history again. Patient says that once his detox is over his depression traditionally clears up pretty well; he says the historical problem is typically that after he is detoxed, he is not re-prescribed benzodiazepines and starts to get overwhelmingly anxious, with social anxiety making it difficult for him to function around others; also flashbacks start to come back. He says all this results in just a relapse with alcohol and then the depression starts again. Patient said that on Vivitrol he mistakenly thought it was disulfiram and so did not drink any alcohol for 3 years, during which time he was on Wellbutrin and a benzodiazepine and said he felt overall in a good mood and doing well enough. The moment he found out that Vivitrol does not cause painful reaction upon ingesting alcohol, he drinks that very day. In continued discussion patient feels that his depression is mostly due to untreated anxiety crippling his functioning and PTSD which is then severely compounded when he relapses on alcohol. Discussed history of treatment and Patient has never had adequate therapy to deal with his childhood trauma and agrees that this is necessary for him to recover and that squelching traumatic memories is a large part of his alcoholism, Given this history, Discussed how ECT is less likely to be that effective to which patient agrees; he agrees to pursue medication and therapy treatment instead. Rather it seems that what patient needs is help staying sober during which time he can engage in trauma informed therapy and CBT for social anxiety. Patient shares how much he hates his addiction and the way it has ruined his life. He said he would like to try disulfiram. He also agrees to restart Wellbutrin. He says that on Wellbutrin 300 mg he did well but eventually it just stopped working. He did know it went to a higher dose and understands that sometimes life situations can produce anxiety/depression the can overwhelm medications making the medication seem unhelpful. publicity writer reviewed risks/side effects of this medication including but not limited to risk of fulminant liver failure and risk of if a person for pursues alcohol while on this medication; patient ask questions and understood the risks and felt that the potential benefit is worth it and that likely nothing else will help him stay sober.. Diagnostics Vital Signs (24Hr): Vital Signs - 24 hr 10/15/22 12:55 10/15/22 17:00 10/16/22 08:39 Temperature 97.7 F 98.3 F Pulse Rate 72 68 62 Respiratory Rate 18 18 18 Blood Pressure 100/56 L 108/59 L 127/70 Pulse Oximetry 100 99 100 Oxygen Delivery Method Room Air Room Air Room Air BMI result Body Mass Index 23.6 Labs 10/09/22 08:22 Medications Medications Current Medications Acetaminophen (Acetaminophen 325 Mg Tablet) 650 mg PO Q6H PRN PRN Reason: Headache/Pain Mild Scale (1-3) Last Admin: 10/15/22 19:47 Dose: 650 mg Al Hydroxide/Mg Hydroxide (Magnesium Hydrox/Alum Hydrox 30 Ml Oral.Susp) 30 ml PO Q6H PRN PRN Reason: Heartburn/Nausea Last Admin: 10/15/22 09:01 Dose: 30 ml Chlordiazepoxide HCl (Chlordiazepoxide Hcl 25 Mg Capsule) 25 mg PO BID@0900,1999 [facility] Last Admin: 10/16/22 08:37 Dose: 25 mg Folic Acid (Folic Acid 1 Mg Tablet) 1 mg PO DAILY [facility] Last Admin: 10/16/22 08:37 Dose: 1 mg Gabapentin (Gabapentin 300 Mg Capsule) 300 mg PO TID [facility] Last Admin: 10/16/22 08:37 Dose: 300 mg Magnesium Hydroxide (Milk Of Magnesia 30 Ml Oral.Susp) 30 ml PO DAILY PRN PRN Reason: Constipation Nicotine (Nicotine 21 Mg Patch.Td24) 21 mg TRANSDERMA DAILY [facility] Last Admin: 10/16/22 09:09 Dose: Not Given Nicotine Polacrilex (Nicotine Polacrilex 2 Mg Gum) 4 mg BUCCAL Q2H PRN PRN Reason: nicotine cravings Last Admin: 10/16/22 03:36 Dose: 4 mg Olanzapine (Olanzapine 10 Mg Tablet) 10 mg PO BEDTIME [facility] Last Admin: 10/15/22 20:44 Dose: 10 mg Ondansetron HCl (Ondansetron Odt 4 Mg Tab.Rapdis) 4 mg TRANSLINGU Q6H PRN PRN Reason: nausea vomiting Last Admin: 10/15/22 08:11 Dose: 4 mg Thiamine HCl (Thiamine Hcl 100 Mg Tablet) 100 mg PO DAILY [facility] Last Admin: 10/16/22 08:37 Dose: 100 mg Zolpidem Tartrate (Zolpidem Tartrate 5 Mg Tablet) 10 mg PO BEDTIME PRN PRN Reason: Sleep Last Admin: 10/15/22 20:44 Dose: 10 mg Allergies Allergies Allergy/AdvReac Type Severity Reaction Status Date / Time sulfamethoxazole AdvReac Unknown aceptic Verified 10/09/22 07:21 [From Bactrim] meningitis trimethoprim [From Bactrim] AdvReac Unknown aceptic Verified 10/09/22 07:21 meningitis Assessment & Plan Assessment & Plan (1) MDD (major depressive disorder), recurrent episode, severe: Status: Acute Code(s): F33.2 - Major depressive disorder, recurrent severe without psychotic features (2) PTSD (post-traumatic stress disorder): Status: Acute Code(s): F43.10 - Post-traumatic stress disorder, unspecified (3) Alcohol use disorder, severe, dependence: Status: Acute Code(s): F10.20 - Alcohol dependence, uncomplicated Plan Patient is a 46-year-old male with history of refractory depression, alcohol abuse who presents for continued depression with SI.? Patient reports long history of depression dating back to childhood.? He says he gets admitted to psychiatric hospitals about 3 to 4 times a year for severe depression.? -chronic alcoholism for years complicates presentation; numerous medication trials many at adequate doses but most often concurrent with alcohol abuse -considering ECT; discussed with patient HOSPITAL COURSE: 10/10: ativan PRN per [facility] protocol.? gabapentin taper in place. ECT consult placed to Dr. Wooten. EKG WNL. medical consult placed for ECT clearance. 10/11: ativan taper - 8 mg today, then 6, 4, 2. ECT planned for next week. seen by kendrick. awaiting hospitalist for ECT clearance. increased trazodone to 150 QHS with 50 PRN, otherwise no changes to regimen aside from ativan taper. 10/12: ativan taper - 6 mg today, 4 saturday, 2 saturday. [facility] will arrange for ECT clearance per personal communication. increased trazodone to 250 mg QHS per pt request, otherwise no changes in mgmt. awaiting ECT clearance and scheduling. 10/14: Extend the Ativan taper. Reassess by primary team. Added Seroquel 50 mg HS. 10/15 Patient reports he remains depressed but suicidality has resolved. Translator And Interpreter agrees that given patient's decades of severe alcohol abuse and benzo use, he indeed could be experiencing a prolonged withdrawal; will start him on Librium and gabapentin and taper from there. Patient having some behavioral/characterological issues, going into female peers room (invited), despite being told not to. Translator And Interpreter discussed this with patient who says he will not go into any room at all other than his own for the remainder of this admission (if this behavior continues will consider discharge since there is some component of willful defiance) Discussed case with Dr. Wooten who agrees to proceed with ECT this Monday 10/16 ECT CANCELLED Patient says that he is doing much better. He he actually says that he is in a good mood and does not feel depressed at all, despite not being on any antidepressants. Decided to pursue medication management instead. Will restart Wellbutrin XL as patient reports he did well in the past on [address] Wooten who agrees to cancel ECT Discussed disulfiram (publicity writer reviewed risks/side effects of this medication including but not limited to risk of fulminant liver failure and risk of if a person for pursues alcohol while on this medication; patient ask questions and understood the risks and felt that the potential benefit is worth it and that likely nothing else will help him stay sober). Translator And Interpreter and patient discussed history again. Patient says that once his detox is over his depression traditionally clears up pretty well; he says the historical problem is typically that after he is detoxed, he is not re-prescribed benzodiazepines and starts to get overwhelmingly anxious, with social anxiety making it difficult for him to function around others; also flashbacks start to come back. He says all this results in just a relapse with alcohol and then the depression starts again. Patient said that on Vivitrol he mistakenly thought it was disulfiram and so did not drink any alcohol for 3 years, during which time he was on Wellbutrin and a benzodiazepine and said he felt overall in a good mood and doing well enough. The moment he found out that Vivitrol does not cause painful reaction upon ingesting alcohol, he drinks that very day. In continued discussion patient feels that his depression is mostly due to untreated anxiety crippling his functioning and PTSD which is then severely compounded when he relapses on alcohol. Discussed history of treatment and Patient has never had adequate therapy to deal with his childhood trauma and agrees that this is necessary for him to recover and that squelching traumatic memories is a large part of his alcoholism, Given this history, Discussed how ECT is less likely to be that effective to which patient agrees. Rather it seems that what patient needs is help staying sober during which time he can engage in trauma informed therapy and CBT for social anxiety. Patient shares how much he hates his addiction and the way it has ruined his life. He said he would like to try disulfiram. He also agrees to restart Wellbutrin. He says that on Wellbutrin 300 mg he did well but eventually it just stopped working. He did know it went to a higher dose and understands that sometimes life situations can produce anxiety/depression the can overwhelm medications making the medication seem unhelpful. -behaviors improved and will discuss changing back to Q15 Plan: Discussed case with Dr. Wooten who agrees to CANCEL ECT CV: Q 5 minute checks (patient defined rules and going into female peers rooms) Start Wellbutrin XL 150mg daily (will titrate; pt did well for a time on 300mg i n the past) Continue Zyprexa 10 mg q.h.s. to help with insomnia Continue Librium 25 mg b.i.d.; will taper from there (JANETTE CIWA; JANETTE Ativan) Continue gabapentin 300 mg t.i.d.; with taper for alcohol withdrawal discontinue Seroquel; not helping with sleep Discontinue trazodone; not help him sleep Medication trials (however most tried while engaged in severe alcohol abuse) Prozac, Zoloft, Lexapro, Effexor, Wellbutrin, Abilify, Risperdal, Seroquel, Zyprexa, Latuda, Tegretol, lithium Patient educated on: diagnosis, medication risk/benefits, substance abuse, ECT and therapeutic strategies Informed Consent: understands Reason for contiued inpatient stay Substantial Risk for: rapid decompensation Time Spent With Patient Time: Total time managing care of this patient today ____ minutes.
[2022-10-16] MEDS: buPROPion HCl XL 150 MG TAB.ER.24H PO (13:02)
[2022-10-16] MEDS: Nicotine Polacrilex Lozenge 4 MG LOZENGE BUCCAL ×3 (15:23→22:13)
[2022-10-16 15:40] VITALS: BP 129/75; PULSE 68; TEMP 36.3; O2SAT 100
--- NOTE | 2022-10-16 16:51 | PC.NURSE ---
Patient scheduled for ECT in the A>M> Dr. Jessica ibanez with patient receiving Gabapentin at .
[2022-10-16] MEDS: OLANZapine 10 MG TABLET PO (20:08)
[2022-10-16] MEDS: Zolpidem Tartrate 5 MG TABLET 10 MG PO (20:09)
[2022-10-17] MEDS: Nicotine Polacrilex Lozenge 4 MG LOZENGE BUCCAL ×6 (05:20→20:59)
[2022-10-17] MEDS: Thiamine HCL 100 MG TABLET PO (08:17)
[2022-10-17] MEDS: chlordiazePOXIDE HCl 25 MG CAPSULE PO ×2 (08:17→19:54)
[2022-10-17] MEDS: Gabapentin 300 MG CAPSULE PO ×3 (08:17→19:55)
[2022-10-17] MEDS: Folic Acid 1 MG TABLET PO (08:17)
[2022-10-17] MEDS: buPROPion HCl XL 150 MG TAB.ER.24H PO (08:18)
[2022-10-17 09:11] VITALS: BP 128/74; PULSE 58; RESP 18; TEMP 36.3; O2SAT 99
--- NOTE | 2022-10-17 09:49 | P.PNPSI_ITS ---
Subjective Subjective Date of Service: 10/17/22 Reason For Visit: unspecified bipolar disorder, alcohol d/o severe Interim History: met with patient; discussed with team Patient reports mood is still pretty good with the benzo on board. He agrees to increase Wellbutrin and titrate to 450 mg saying he has only been off it for a month. Discussed issue with continuing benzodiazepines, how it is a barrier to overcoming PTSD symptoms as well as the risks attached to addiction; patient un derstands and is willing to try other things to help lower his anxiety including increasing gabapentin or trying Tegretol. Discussed also that right now on the benzo he is not experiencing much anxiety so it will be difficult to tell if the medication is effective without lowering his benzo dose. Reviewed risks/benefits of disulfiram and patient continues to want to be on it feeling the need to help him stay sober. Patient slept about 4 hours last night which he is grateful for saying he has had chronic insomnia for a long time. Again discussed role of therapy in his recovery; patient said that he is very willing to do so, though he has had negative experiences in the past he understands the importance of it Mental Status Exam Mental Status Exam Narrative: Pt is alert and oriented; behavior is cooperative, friendly and calm; patient is not in distress; dressed in casual attire with adequate hygiene; mood is described as good and affect congruent; eye contact appropriate; Speech is normal rate, volume and prosody and not pressured; no psychomotor agitation/retardation present; thought process is organized and goal directed; Thought content is on tx; otherwise pertinent to relevant topics and without any delusional content, paranoid ideations or grandiosity; denies any SI/HI. There is no evidence of perceptual disturbance. Patients insight and judgment are intact. Diagnostics Vital Signs (24Hr): Vital Signs - 24 hr 10/16/22 15:40 10/17/22 09:11 Temperature 97.3 F 97.3 F Pulse Rate 68 58 Respiratory Rate 18 Blood Pressure 129/75 128/74 Pulse Oximetry 100 99 Oxygen Delivery Method Room Air Room Air BMI result Body Mass Index 23.6 Labs 10/09/22 08:22 Medications Medications Current Medications Acetaminophen (Acetaminophen 325 Mg Tablet) 650 mg PO Q6H PRN PRN Reason: Headache/Pain Mild Scale (1-3) Last Admin: 10/15/22 19:47 Dose: 650 mg Al Hydroxide/Mg Hydroxide (Magnesium Hydrox/Alum Hydrox 30 Ml Oral.Susp) 30 ml PO Q6H PRN PRN Reason: Heartburn/Nausea Last Admin: 10/15/22 09:01 Dose: 30 ml Bupropion HCl (Bupropion Hcl Xl 150 Mg Tab.Er.24h) 150 mg PO DAILY [facility] Last Admin: 10/17/22 08:18 Dose: 150 mg Chlordiazepoxide HCl (Chlordiazepoxide Hcl 25 Mg Capsule) 25 mg PO BID@0900,2 000 [facility] Last Admin: 10/17/22 08:17 Dose: 25 mg Folic Acid (Folic Acid 1 Mg Tablet) 1 mg PO DAILY [facility] Last Admin: 10/17/22 08:17 Dose: 1 mg Gabapentin (Gabapentin 300 Mg Capsule) 300 mg PO TID [facility] Last Admin: 10/17/22 08:17 Dose: 300 mg Magnesium Hydroxide (Milk Of Magnesia 30 Ml Oral.Susp) 30 ml PO DAILY PRN PRN Reason: Constipation Nicotine (Nicotine 21 Mg Patch.Td24) 21 mg TRANSDERMA DAILY [facility] Last Admin: 10/17/22 08:18 Dose: Not Given Nicotine Polacrilex (Nicotine Polacrilex 2 Mg Gum) 4 mg BUCCAL Q2H PRN PRN Reason: nicotine cravings Last Admin: 10/16/22 03:36 Dose: 4 mg Nicotine Polacrilex (Nicotine Polacrilex Lozenge 4 Mg Lozenge) 4 mg BUCCAL Q2H PRN PRN Reason: Nicotine Cravings Last Admin: 10/17/22 09:38 Dose: 4 mg Olanzapine (Olanzapine 10 Mg Tablet) 10 mg PO BEDTIME [facility] Last Admin: 10/16/22 20:08 Dose: 10 mg Ondansetron HCl (Ondansetron Odt 4 Mg Tab.Rapdis) 4 mg TRANSLINGU Q6H PRN PRN Reason: nausea vomiting Last Admin: 10/15/22 08:11 Dose: 4 mg Thiamine HCl (Thiamine Hcl 100 Mg Tablet) 100 mg PO DAILY [facility] Last Admin: 10/17/22 08:17 Dose: 100 mg Zolpidem Tartrate (Zolpidem Tartrate 5 Mg Tablet) 10 mg PO BEDTIME PRN PRN Reason: Sleep Last Admin: 10/16/22 20:09 Dose: 10 mg Allergies Allergies Allergy/AdvReac Type Severity Reaction Status Date / Time sulfamethoxazole AdvReac Unknown aceptic Verified 10/09/22 07:21 [From Bactrim] meningitis trimethoprim [From Bactrim] AdvReac Unknown aceptic Verified 10/09/22 07:21 meningitis Assessment & Plan Assessment & Plan (1) MDD (major depressive disorder), recurrent episode, severe: Status: Acute Code(s): F33.2 - Major depressive disorder, recurrent severe without psychotic features (2) PTSD (post-traumatic stress disorder): Status: Acute Code(s): F43.10 - Post-traumatic stress disorder, unspecified (3) Alcohol use disorder, severe, dependence: Status: Acute Code(s): F10.20 - Alcohol dependence, uncomplicated Plan Patient is a 46-year-old male with history of refractory depression, alcohol abuse who presents for continued depression with SI.? Patient reports long history of depression dating back to childhood.? He says he gets admitted to psychiatric hospitals about 3 to 4 times a year for severe depression.? -chronic alcoholism for years complicates presentation; numerous medication trials many at adequate doses but most often concurrent with alcohol abuse -considering ECT; discussed with patient HOSPITAL COURSE: 10/10: ativan PRN per [facility] protocol.? gabapentin taper in place. ECT consult placed to Dr. Wooten. EKG WNL. medical consult placed for ECT clearance. 10/11: ativan taper - 8 mg today, then 6, 4, 2. ECT planned for next week. seen by kendrick. awaiting hospitalist for ECT clearance. increased trazodone to 150 QHS with 50 PRN, otherwise no changes to regimen asid e from ativan taper. 10/12: ativan taper - 6 mg today, 4 saturday, 2 saturday. [facility] will arrange for ECT clearance per personal communication. increased trazodone to 250 mg QHS per pt request, otherwise no changes in mgmt. awaiting ECT clearance and scheduling. 10/14: Extend the Ativan taper. Reassess by primary team. Added Seroquel 50 mg HS. 10/15 Patient reports he remains depressed but suicidality has resolved. Steam And Gas Turbines Assembler agrees that given patient's decades of severe alcohol abuse and benzo use, he indeed could be experiencing a prolonged withdrawal; will start him on Librium and gabapentin and taper from there. Patient having some behavioral/characterological issues, going into female peers room (invited), despite being told not to. Steam And Gas Turbines Assembler discussed this with patient who says he will not go into any room at all other than his own for the remainder of this admission (if this behavior continues will consider discharge since there is some component of willful defiance) Discussed case with Dr. Wooten who agrees to proceed with ECT this Monday 10/16 ECT CANCELLED Patient says that he is doing much better. He he actually says that he is in a good mood and does not feel depressed at all, despite not being on any antidepressants. Decided to pursue medication management instead. Will restart Wellbutrin XL as patient reports he did well in the past on [address] Wooten who agrees to cancel ECT Discussed disulfiram (ticket writer reviewed risks/side effects of this medication including but not limited to risk of fulminant liver failure and risk of if a person for pursues alcohol while on this medication; patient ask questions and understood the risks and felt that the potential benefit is worth it and that likely nothing else will help him stay sober). Steam And Gas Turbines Assembler and patient discussed history again. Patient says that once his detox is over his depression traditionally clears up pretty well; he says the historical problem is typically that after he is detoxed, he is not re-prescribed benzodiazepines and starts to get overwhelmingly anxious, with social anxiety making it difficult for him to function around others; also flashbacks start to come back. He says all this results in just a relapse with alcohol and then the depression starts again. Patient said that on Vivitrol he mistakenly thought it was disulfiram and so did not drink any alcohol for 3 years, during which time he was on Wellbutrin and a benzodiazepine and said he felt overall in a good mood and doing well enough. The moment he found out that Vivitrol does not ca use painful reaction upon ingesting alcohol, he drinks that very day. In continued discussion patient feels that his depression is mostly due to untreated anxiety crippling his functioning and PTSD which is then severely compounded when he relapses on alcohol. Discussed history of treatment and Michael muñoz has never had adequate therapy to deal with his childhood trauma and agrees that this is necessary for him to recover and that squelching traumatic memories is a large part of his alcoholism, Given this history, Discussed how ECT is less likely to be that effective to which patient agrees. Rather it seems that what patient needs is help staying sober during which time he can engage in trauma informed therapy and CBT for social anxiety. Patient shares how much he hates his addiction and the way it has ruined his life. He said he would like to try disulfiram. He also agrees to restart Wellbutrin. He says that on Wellbutrin 300 mg he did well but eventually it just stopped working. He did know it went to a higher dose and understands that sometimes life situations can produce anxiety/depression the can overwhelm medications making the medication seem unhelpful. -behaviors improved; changing back to Q15 10/17 mood remains improved patient sleeping a little more; agrees to increase Wellbutrin, titrating to 450; also agrees to try medications to help lower anxiety; patient gives permission to call and discussed case with his mother and gave ticket writer her phone number Plan: Discussed case with Dr. Wooten who agrees to CANCEL ECT CV: Q 15 minute checks (patient defined rules and going into female peers rooms) increase to Wellbutrin XL 300mg daily (will titrate; pt did well for a time on 300mg in the past) Continue Zyprexa 10 mg q.h.s. to help with insomnia Continue Librium 25 mg b.i.d.; will taper from there (JANETTE CIWA; JANETTE Ativan) Continue gabapentin 300 mg t.i.d.; initially going to taper but may continue or even increase to see if can help with chronic anxiety discontinue Seroquel; not helping with sleep Discontinue trazodone; not help him sleep Medication trials (however most tried while engaged in severe alcohol abuse) Prozac, Zoloft, Lexapro, Effexor, Wellbutrin, Abilify, Risperdal, Seroquel, Zyprexa, Latuda, Tegretol, lithium Patient educated on: diagnosis, medication risk/benefits, substance abuse and therapeutic strategies Informed Consent: understands Reason for contiued inpatient stay Substantial Risk for: stable for discharge Time Spent With Patient Time: Total time managing care of this patient today ____ minutes.
[2022-10-17 16:38] VITALS: BP 132/67; PULSE 60; RESP 16; TEMP 36.4; O2SAT 99
[2022-10-17] MEDS: OLANZapine 10 MG TABLET PO (19:54)
[2022-10-17] MEDS: Zolpidem Tartrate 5 MG TABLET 10 MG PO (20:59)
[2022-10-18] MEDS: Nicotine Polacrilex Lozenge 4 MG LOZENGE BUCCAL ×6 (00:58→20:02)
[2022-10-18] MEDS: buPROPion HCl XL 300 MG TAB.ER.24H PO (08:13)
[2022-10-18] MEDS: Gabapentin 300 MG CAPSULE PO ×2 (08:13→14:02)
[2022-10-18] MEDS: Thiamine HCL 100 MG TABLET PO (08:13)
[2022-10-18] MEDS: Folic Acid 1 MG TABLET PO (08:13)
[2022-10-18] MEDS: chlordiazePOXIDE HCl 25 MG CAPSULE PO (08:13)
[2022-10-18 08:40] VITALS: BP 115/69; PULSE 66; RESP 16; TEMP 36.5; O2SAT 100
[2022-10-18 08:41] VITALS: BMI 23.6
--- NOTE | 2022-10-18 09:30 | HO.PSYCHPN ---
Subjective Subjective Date of Service: 10/18/22 Reason For Visit: unspecified bipolar disorder, alcohol d/o severe Interim History: Met with patient; discussed in team; Patient reports continued improved mood; still anxious but feels is tolerable. Agrees to start tapering down Librium; agrees to having bedtime gabapentin increased to 600 mg to help with prolonged withdrawal and anxiety. Discussed role of therapy and patient continues to agree to its necessity and says he is willing to engage. He agrees to start disulfiram today. Mental Status Exam Mental Status Exam Narrative: Pt is alert and oriented; behavior is cooperative, friendly and calm; patient is not in distress; dressed in casual attire with adequate hygiene; mood is described as good and affect congruent; eye contact appropriate; Speech is normal rate, volume and prosody and not pressured; no psychomotor agitation/retardation present; thought process is organized and goal directed; Thought content is on tx; otherwise pertinent to relevant topics and without any delusional content, paranoid ideations or grandiosity; denies any SI/HI. There is no evidence of perceptual disturbance. Patients insight and judgment are intact. Diagnostics Vital Signs (24Hr): Vital Signs - 24 hr 10/17/22 16:38 10/18/22 08:40 Temperature 97.6 F 97.7 F Pulse Rate 60 66 Respiratory Rate 16 16 Blood Pressure 132/67 115/69 Pulse Oximetry 99 100 Oxygen Delivery Method Room Air Room Air BMI result Body Mass Index 23.6 Labs 10/09/22 08:22 Medications Medications Current Medications Acetaminophen (Acetaminophen 325 Mg Tablet) 650 mg PO Q6H PRN PRN Reason: Headache/Pain Mild Scale (1-3) Last Admin: 10/15/22 19:47 Dose: 650 mg Al Hydroxide/Mg Hydroxide (Magnesium Hydrox/Alum Hydrox 30 Ml Oral.Susp) 30 ml PO Q6H PRN PRN Reason: Heartburn/Nausea Last Admin: 10/15/22 09:01 Dose: 30 ml Bupropion HCl (Bupropion Hcl Xl 300 Mg Tab.Er.24h) 300 mg PO DAILY [facility] Last Admin: 10/18/22 08:13 Dose: 300 mg Chlordiazepoxide HCl (Chlordiazepoxide Hcl 25 Mg Capsule) 25 mg PO BID@0900,2000 [facility] Last Admin: 10/18/22 08:13 Dose: 25 mg Folic Acid (Folic Acid 1 Mg Tablet) 1 mg PO DAILY [facility] Last Admin: 10/18/22 08:13 Dose: 1 mg Gabapentin (Gabapentin 300 Mg Capsule) 300 mg PO TID [facility] Last Admin: 10/18/22 08:13 Dose: 300 mg Magnesium Hydroxide (Milk Of Magnesia 30 Ml Oral.Susp) 30 ml PO DAILY PRN PRN Reason: Constipation Nicotine (Nicotine 21 Mg Patch.Td24) 21 mg TRANSDERMA DAILY [facility] Last Admin: 10/18/22 08:13 Dose: Not Given Nicotine Polacrilex (Nicotine Polacrilex 2 Mg Gum) 4 mg BUCCAL Q2H PRN PRN Reason: nicotine cravings Last Admin: 10/16/22 03:36 Dose: 4 mg Nicotine Polacrilex (Nicotine Polacrilex Lozenge 4 Mg Lozenge) 4 mg BUCCAL Q2H PRN PRN Reason: Nicotine Cravings Last Admin: 10/18/22 06:53 Dose: 4 mg Olanzapine (Olanzapine 10 Mg Tablet) 10 mg PO BEDTIME [facility] Last Admin: 10/17/22 19:54 Dose: 10 mg Ondansetron HCl (Ondansetron Odt 4 Mg Tab.Rapdis) 4 mg TRANSLINGU Q6H PRN PRN Reason: nausea vomiting Last Admin: 10/15/22 08:11 Dose: 4 mg Thiamine HCl (Thiamine Hcl 100 Mg Tablet) 100 mg PO DAILY [facility] Last Admin: 10/18/22 08:13 Dose: 100 mg Zolpidem Tartrate (Zolpidem Tartrate 5 Mg Tablet) 10 mg PO BEDTIME PRN PRN Reason: Sleep Last Admin: 10/17/22 20:59 Dose: 10 mg Allergies Allergies Allergy/AdvReac Type Severity Reaction Status Date / Time sulfamethoxazole AdvReac Unknown aceptic Verified 10/09/22 07:21 [From Bactrim] meningitis trimethoprim [From Bactrim] AdvReac Unknown aceptic Verified 10/09/22 07:21 meningitis Assessment & Plan Assessment & Plan (1) MDD (major depressive disorder), recurrent episode, severe: Status: Acute Code(s): F33.2 - Major depressive disorder, recurrent severe without psychotic features (2) PTSD (post-traumatic stress disorder): Status: Acute Code(s): F43.10 - Post-traumatic stress disorder, unspecified (3) Alcohol use disorder, severe, dependence: Status: Acute Code(s): F10.20 - Alcohol dependence, uncomplicated Plan HPI: Patient is a 46-year-old male with history of refractory depression, alcohol abuse who presents for continued depression with SI.? Patient reports long history of depression dating back to childhood.? He says he gets admitted to psychiatric hospitals about 3 to 4 times a year for severe depression.? -chronic alcoholism for years complicates presentation; numerous medication trials many at adequate doses but most often concurrent with alcohol abuse -considering ECT; discussed with patient HOSPITAL COURSE: 10/10: ativan PRN per [facility] protocol.? gabapentin taper in place. ECT consult placed to Dr. Wooten. EKG WNL. medical consult placed for ECT clearance. 10/11:ativan taper - 8 mg today, then 6, 4, 2.; ECT planned for next week.increased trazodone to 150 QHS with 50 PRN, otherwise no changes to regimen aside from ativan taper. 10/12: ativan taper - 6 mg today, 4 saturday, 2 saturday.natasha will arrange for ECT clearance per personal communication. increased trazodone to 250 mg QHS per pt request, otherwise no changes in mgmt. awaiting ECT clearance and scheduling. 10/14: Extend the Ativan taper. Reassess by primary team. Added Seroquel 50 mg HS. 10/15 Patient reports he remains depressed but suicidality has resolved. Hand I Blocker agrees that given patient's decades of severe alcohol abuse and benzo use, he indeed could be experiencing a prolonged withdrawal; will start him on Librium and gabapentin and taper from there. Patient having some behavioral/characterological issues, going into female peers room (invited), despite being told not to. Hand I Blocker discussed this with patient who says he will not go into any room at all other than his own for the remainder of this admission (if this behavior continues will consider discharge since there is some component of willful defiance). Discussed case with Dr. Wooten who agrees to proceed with ECT this Monday 10/16 ECT CANCELLED Patient says that he is doing much better. He he actually says that he is in a good mood and does not feel depressed at all, despite not being on any antidepressants. Decided to pursue medication management instead. Will restart Wellbutrin XL as patient reports he did well in the past on [address] Wooten who agrees to cancel ECT Discussed disulfiram (health underwriter reviewed risks/side effects of this medication including but not limited to risk of fulminant liver failure and risk of if a person for pursues alcohol while on this medication; patient ask questions and understood the risks and felt that the potential benefit is worth it and that likely nothing else will help him stay sober). Hand I Blocker and patient discussed history again. Patient says that once his detox is over his depression traditionally clears up pretty well; he says the historical problem is typically that after he is detoxed, he is not re-prescribed benzodiazepines and starts to get overwhelmingly anxious, with social anxiety making it difficult for him to function around others; also flashbacks start to come back. He says all this results in just a relapse with alcohol and then the depression starts again. Patient said that on Vivitrol he mistakenly thought it was disulfiram and so did not drink any alcohol for 3 years, during which time he was on Wellbutrin and a benzodiazepine and said he felt overall in a good mood and doing well enough. The moment he found out that Vivitrol does not cause painful reaction upon ingesting alcohol, he drinks that very day. In continued discussion patient feels that his depression is mostly due to untreated anxiety crippling his functioning and PTSD which is then severely compounded when he relapses on alcohol. Discussed history of treatment and Patient has never had adequate therapy to deal with his childhood trauma and agrees that this is necessary for him to recover and that squelching traumatic memories is a large part of his alcoholism, Given this history, Discussed how ECT is less likely to be that effective to which patient agrees. Rather it seems that what patient needs is help staying sober during which time he can engage in trauma informed therapy and CBT for social anxiety. Patient shares how much he hates his addiction and the way it has ruined his life. He said he would like to try disulfiram. He also agrees to restart Wellbutrin. He says that on Wellbutrin 300 mg he did well but eventually it just stopped working. He did know it went to a higher dose and understands that sometimes life situations can produce anxiety/depression the can overwhelm medications making the medication seem unhelpful. -behaviors improved; changing back to Q15 10/17 mood remains improved patient sleeping a little more; agrees to increase Wellbutrin, titrating to 450; also agrees to try medications to help lower anxiety; patient gives permission to call and discussed case with his mother and gave health underwriter her phone number 10/18 patient remains in improved mood; agrees to tapering Librium and increasing gabapentin Plan: CV: Q 15 minute checks increased to Wellbutrin XL 300mg daily (will titrate; pt did well for a time on 300mg in the past) Continue Zyprexa 10 mg q.h.s. to help with insomnia Lower Librium to 15 mg b.i.d.; will taper and dc; will consider adding Clonazepam for a few weeks following Continue gabapentin 300 mg t.i.d.; initially going to taper but may continue or even increase to see if can help with chronic anxiety ADD gabapentin 300mg to bedtime dose since lowering Librium discontinue Seroquel; not helping with sleep Discontinue trazodone; not help him sleep Medication trials (however most tried while engaged in severe alcohol abuse) Prozac, Zoloft, Lexapro, Effexor, Wellbutrin, Abilify, Risperdal, Seroquel, Zyprexa, Latuda, Tegretol, lithium Patient educated on: diagnosis, medication risk/benefits, substance abuse and therapeutic strategies Informed Consent: understands Reason for contiued inpatient stay Substantial Risk for: stable for discharge Time Spent With Patient Time: Total time managing care of this patient today ____ minutes.
[2022-10-18 17:13] VITALS: BP 122/68; PULSE 69; RESP 16; TEMP 36.2; O2SAT 98
[2022-10-18] MEDS: OLANZapine 10 MG TABLET PO (19:22)
[2022-10-18] MEDS: Gabapentin 600 MG TABLET PO (19:22)
[2022-10-18] MEDS: chlordiazePOXIDE HCl 5 MG CAPSULE 15 MG PO (21:18)
[2022-10-18] MEDS: Zolpidem Tartrate 5 MG TABLET 10 MG PO (21:18)
[2022-10-19] MEDS: Nicotine Polacrilex Lozenge 4 MG LOZENGE BUCCAL ×4 (02:40→19:45)
[2022-10-19] MEDS: buPROPion HCl XL 300 MG TAB.ER.24H PO (08:10)
[2022-10-19] MEDS: Folic Acid 1 MG TABLET PO (08:10)
[2022-10-19] MEDS: chlordiazePOXIDE HCl 5 MG CAPSULE 15 MG PO ×2 (08:10→19:45)
[2022-10-19] MEDS: Thiamine HCL 100 MG TABLET PO (08:10)
[2022-10-19] MEDS: Gabapentin 300 MG CAPSULE PO ×2 (08:10→13:34)
[2022-10-19 08:45] LABS: Alanine Aminotransferase 16 U/L (0-40); Albumin Level 4.8 g/dL (3.5-5.0); Alkaline Phosphatase 35 U/L (39-117); Aspartate Amino Transferase 19 U/L (5-37); Bilirubin Direct < 0.2 mg/dL (0.0-0.5); Bilirubin Total 0.3 mg/dL (0.0-1.0); Total Protein 7.5 g/dL (6.5-8.0)
[2022-10-19 09:11] VITALS: BP 143/63; PULSE 74; RESP 18; TEMP 36.6; O2SAT 100
[2022-10-19] MEDS: Gabapentin 300 MG CAPSULE 600 MG PO ×2 (14:13→19:45)
[2022-10-19] MEDS: FLUoxetine HCl 10 MG CAPSULE PO (14:13)
[2022-10-19 16:39] VITALS: BP 119/58; PULSE 61; RESP 16; TEMP 36.1; O2SAT 100
--- NOTE | 2022-10-19 17:21 | HO.PSYCHPN ---
Subjective Subjective Date of Service: 10/19/22 Reason For Visit: unspecified bipolar disorder, alcohol d/o severe Interim History: Met with patient; discussed in teams; family meeting with mother Patient complains of hand tremor which he said started this morning and showed health technical writer; health technical writer only noticed tremor when hands presented for observation, but otherwise none observed Discussed treatment plan with his mother who agrees; her biggest concern is aftercare. Patient laments his experiences with outpatient providers. Patient lives with his mother and father who are supportive; mother and son agrees to have mother, who was a nurse, administer disulfiram. Patient wanted benzodiazepines post discharge for few weeks and also agrees to have his mother hold onto them and distribute. Discussed medication regimen and patient agrees to mirtazapine anxiety, depression and for insomnia; also agrees to lower Wellbutrin to 300 mg given that he has struggled with insomnia more recently and 450 might possibly be interfering. Also agrees to try Thorazine p.r.n. at bedtime for insomnia. -will consider mirtazapine 0Patient had some verbal altercation with female peer; he had loaned her his bathroom but she angrily give it back and call him a liar; he said he had no idea why she got upset Mental Status Exam Mental Status Exam Narrative: Pt is alert and oriented; behavior is cooperative; patient is not in distress; dressed in casual attire with adequate hygiene; mood is described as anxious and affect congruent; eye contact appropriate; Speech is normal rate, volume and prosody and not pressured; b/l hand tremor intermittently present; othewise, no psychomotor agitation/retardation present; thought process is organized and goal directed; Thought content is on tx; otherwise pertinent to relevant topics and without any delusional content, paranoid ideations or grandiosity; denies any SI/HI. There is no evidence of perceptual disturbance. Patients insight and judgment are intact. Diagnostics Vital Signs (24Hr): Vital Signs - 24 hr 10/19/22 09:11 10/19/22 16:39 Temperature 97.9 F 97 F Pulse Rate 74 61 Respiratory Rate 18 16 Blood Pressure 143/63 H 119/58 L Pulse Oximetry 100 100 Oxygen Delivery Method Room Air Room Air BMI result Body Mass Index 23.6 Labs 10/09/22 08:22 Labs: Laboratory Results - last 48 hr 10/19/22 08:20 Total Bilirubin 0.3 Direct Bilirubin < 0.2 AST 19 ALT 16 Alkaline Phosphatase 35 L Total Protein 7.5 Albumin 4.8 Medications Medications Current Medications Acetaminophen (Acetaminophen 325 Mg Tablet) 650 mg PO Q6H PRN PRN Reason: Headache/Pain Mild Scale (1-3) Last Admin: 10/15/22 19:47 Dose: 650 mg Al Hydroxide/Mg Hydroxide (Magnesium Hydrox/Alum Hydrox 30 Ml Oral.Susp) 30 ml PO Q6H PRN PRN Reason: Heartburn/Nausea Last Admin: 10/15/22 09:01 Dose: 30 ml Bupropion HCl (Bupropion Hcl Xl 300 Mg Tab.Er.24h) 300 mg PO DAILY [facility] Chlordiazepoxide HCl (Chlordiazepoxide Hcl 5 Mg Capsule) 15 mg PO BID@00,1999 [facility] Last Admin: 10/19/22 08:10 Dose: 15 mg Chlorpromazine HCl (Chlorpromazine Hcl 100 Mg Tablet) 50 mg PO BEDTIME [facility] Chlorpromazine HCl (Chlorpromazine Hcl 100 Mg Tablet) 50 mg PO BEDTIME PRN PRN Reason: continued insomnia Clonidine HCl (Clonidine Hcl 0.1 Mg Tablet) 0.1 mg PO Q4H PRN; Protocol PRN Reason: anxiety Fluoxetine HCl (Fluoxetine Hcl 10 Mg Capsule) 10 mg PO DAILY [facility] Folic Acid (Folic Acid 1 Mg Tablet) 1 mg PO DAILY [facility] Last Admin: 10/19/22 08:10 Dose: 1 mg Gabapentin (Gabapentin 300 Mg Capsule) 600 mg PO TID [facility] Last Admin: 10/19/22 14:13 Dose: 600 mg Magnesium Hydroxide (Milk Of Magnesia 30 Ml Oral.Susp) 30 ml PO DAILY PRN PRN Reason: Constipation Nicotine (Nicotine 21 Mg Patch.Td24) 21 mg TRANSDERMA DAILY [facility] Last Admin: 10/19/22 08:15 Dose: Not Given Nicotine Polacrilex (Nicotine Polacrilex 2 Mg Gum) 4 mg BUCCAL Q2H PRN PRN Reason: nicotine cravings Last Admin: 10/16/22 03:36 Dose: 4 mg Nicotine Polacrilex (Nicotine Polacrilex Lozenge 4 Mg Lozenge) 4 mg BUCCAL Q2H PRN PRN Reason: Nicotine Cravings Last Admin: 10/19/22 16:19 Dose: 4 mg Pt Own Med ( Disulfiram 250 Mg Tablets 250 Mg) 500 mg PO DAILY [facility] Last Admin: 10/19/22 08:10 Dose: 500 mg Olanzapine (Olanzapine 10 Mg Tablet) 10 mg PO BEDTIME PRN PRN Reason: insomnia/agitation Ondansetron HCl (Ondansetron Odt 4 Mg Tab.Rapdis) 4 mg TRANSLINGU Q6H PRN PRN Reason: nausea vomiting Last Admin: 10/15/22 08:11 Dose: 4 mg Thiamine HCl (Thiamine Hcl 100 Mg Tablet) 100 mg PO DAILY [facility] Last Admin: 10/19/22 08:10 Dose: 100 mg Zolpidem Tartrate (Zolpidem Tartrate 5 Mg Tablet) 10 mg PO BEDTIME PRN PRN Reason: Sleep Last Admin: 10/18/22 21:18 Dose: 10 mg Allergies Allergies Allergy/AdvReac Type Severity Reaction Status Date / Time sulfamethoxazole AdvReac Unknown aceptic Verified 10/09/22 07:21 [From Bactrim] meningitis trimethoprim [From Bactrim] AdvReac Unknown aceptic Verified 10/09/22 07:21 meningitis Assessment & Plan Assessment & Plan (1) MDD (major depressive disorder), recurrent episode, severe: Status: Acute Code(s): F33.2 - Major depressive disorder, recurrent severe without psychotic features (2) PTSD (post-traumatic stress disorder): Status: Acute Code(s): F43.10 - Post-traumatic stress disorder, unspecified (3) Alcohol use disorder, severe, dependence: Status: Acute Code(s): F10.20 - Alcohol dependence, uncomplicated Plan HPI: Patient is a 46-year-old male with history of refractory depression, alcohol abuse who presents for continued depression with SI.? Patient reports long history of depression dating back to childhood.? He says he gets admitted to psychiatric hospitals about 3 to 4 times a year for severe depression.? -chronic alcoholism for years complicates presentation; numerous medication trials many at adequate doses but most often concurrent with alcohol abuse -considering ECT; discussed with patient HOSPITAL COURSE: 10/10: ativan PRN per [facility] protocol.? gabapentin taper in place. ECT consult placed to Dr. Wooten. EKG WNL. medical consult placed for ECT clearance. 10/11:ativan taper - 8 mg today, then 6, 4, 2.; ECT planned for next week.increased trazodone to 150 QHS with 50 PRN, otherwise no changes to regimen aside from ativan taper. 10/12: ativan taper - 6 mg today, 4 saturday, 2 saturday[facility] will arrange for ECT clearance per personal communication. increased trazodone to 250 mg QHS per pt request, otherwise no changes in mgmt. awaiting ECT clearance and scheduling. 10/14: Extend the Ativan taper. Reassess by primary team. Added Seroquel 50 mg HS. 10/15 Patient reports he remains depressed but suicidality has resolved. Coating Manager agrees that given patient's decades of severe alcohol abuse and benzo use, he indeed could be experiencing a prolonged withdrawal; will start him on Librium and gabapentin and taper from there. Patient having some behavioral/characterological issues, going into female peers room (invited), despite being told not to. Coating Manager discussed this with patient who says he will not go into any room at all other than his own for the remainder of this admission (if this behavior continues will consider discharge since there is some component of willful defiance). Discussed case with Dr. Wooten who agrees to proceed with ECT this Monday 10/16 ECT CANCELLED Patient says that he is doing much better. He he actually says that he is in a good mood and does not feel depressed at all, despite not being on any antidepressants. Decided to pursue medication management instead. Will restart Wellbutrin XL as patient reports he did well in the past on [address] Wooten who agrees to cancel ECT Discussed disulfiram (health technical writer reviewed risks/side effects of this medication including but not limited to risk of fulminant liver failure and risk of if a person for pursues alcohol while on this medication; patient ask questions and understood the risks and felt that the potential benefit is worth it and that likely nothing else will help him stay sober). Coating Manager and patient discussed history again. Patient says that once his detox is over his depression traditionally clears up pretty well; he says the historical problem is typically that after he is detoxed, he is not re-prescribed benzodiazepines and starts to get overwhelmingly anxious, with social anxiety making it difficult for him to function around others; also flashbacks start to come back. He says all this results in just a relapse with alcohol and then the depression starts again. Patient said that on Vivitrol he mistakenly thought it was disulfiram and so did not drink any alcohol for 3 years, during which time he was on Wellbutrin and a benzodiazepine and said he felt overall in a good mood and doing well enough. The moment he found out that Vivitrol does not cause painful reaction upon ingesting alcohol, he drinks that very day. In continued discussion patient feels that his depression is mostly due to untreated anxiety crippling his functioning and PTSD which is then severely compounded when he relapses on alcohol. Discussed history of treatment and Patient has never had adequate therapy to deal with his childhood trauma and agrees that this is necessary for him to recover and that squelching traumatic memories is a large part of his alcoholism, Given this history, Discussed how ECT is less likely to be that effective to which patient agrees. Rather it seems that what patient needs is help staying sober during which time he can engage in trauma informed therapy and CBT for social anxiety. Patient shares how much he hates his addiction and the way it has ruined his life. He said he would like to try disulfiram. He also agrees to restart Wellbutrin. He says that on Wellbutrin 300 mg he did well but eventually it just stopped working. He did know it went to a higher dose and understands that sometimes life situations can produce anxiety/depression the can overwhelm medications making the medication seem unhelpful. -behaviors improved; changing back to Q15 3 mood remains improved patient sleeping a little more; agrees to increase Wellbutrin, titrating to 450; also agrees to try medications to help lower anxiety; patient gives permission to call and discussed case with his mother and gave health technical writer her phone number 10/18 patient remains in improved mood; agrees to tapering Librium and increasing gabapentin 10/19 patient reports hand tremor which started today; looks augmented with effort. Will keep Librium at 50 mg b.i.d. for another few days; will increase gabapentin to 600 mg t.i.d. to help. -gave 1 dose of Prozac however decided to change it to mirtazapine to see if that can help with sleep; Thorazine p.r.n. -verbal altercation with female peer however resolved on its own Plan: CV: Q 15 minute checks LOWERED back to Wellbutrin XL 300mg daily (some increased insomnia and pt did well for a time on 300mg in the past) START mirtazapine 7.5 mg q.h.s. START Thorazine 50 mg p.r.n. at bedtime with repeat dose for insomnia DC Zyprexa scheduled; will leave his p.r.n.; not helping patient's sleep so no need for added risk of side effects CONTINUE Librium to 15 mg b.i.d.; will taper and dc INCREASED to gabapentin 600 mg t.i.d.; for help with withdrawal and anxiety discontinue Seroquel; not helping with sleep Discontinue trazodone; not help him sleep Discontinued Zyprexa; not helping with sleep Medication trials (however most tried while engaged in severe alcohol abuse) Prozac, Zoloft, Lexapro, Effexor, Wellbutrin, Abilify, Risperdal, Seroquel, Zyprexa, Latuda, Tegretol, lithium Patient educated on: diagnosis, medication risk/benefits, substance abuse and therapeutic strategies Informed Consent: understands Reason for contiued inpatient stay Substantial Risk for: stable for discharge Time Spent With Patient Time: Total time managing care of this patient today ____ minutes.
[2022-10-19] MEDS: Acetaminophen 325 MG TABLET 650 MG PO (18:28)
[2022-10-19] MEDS: Mirtazapine 7.5 MG TABLET PO (19:45)
[2022-10-19] MEDS: Zolpidem Tartrate 5 MG TABLET 10 MG PO (20:43)
[2022-10-20] MEDS: chlordiazePOXIDE HCl 5 MG CAPSULE 15 MG PO ×2 (09:29→19:23)
[2022-10-20] MEDS: Folic Acid 1 MG TABLET PO (09:29)
[2022-10-20] MEDS: Thiamine HCL 100 MG TABLET PO (09:30)
[2022-10-20] MEDS: Gabapentin 300 MG CAPSULE 600 MG PO ×3 (09:30→19:22)
[2022-10-20] MEDS: buPROPion HCl XL 300 MG TAB.ER.24H PO (09:30)
[2022-10-20 09:39] VITALS: BP 122/58; PULSE 87; RESP 18; TEMP 36.4; O2SAT 97
--- NOTE | 2022-10-20 09:45 | P.PNPSI_ITS ---
Subjective Subjective Date of Service: 10/20/22 Reason For Visit: unspecified bipolar disorder, alcohol d/o severe Subjective Notes: Conditional Voluntary Healthcare Proxy: No Guardianship: No Medical Problems Affecting Mental Status: No Interim History: Pt reported not sleeping well though got 4 hrs from thorazine and ambien doesn't want to take mirtazapine it didn't help talked about using higher dose- he doesn't want weight gain risk with that med but also feels off balance this am - Medication Compliance: Yes Side effects from medications: No Attending Groups: Intermittent Review of Systems Acute medical concerns: No Review of Systems: says doesn''t want mirtazapine due to weight gain says needs more benzo specifically libirum for detox despite stable vs had mother complain to nurses and request to talk to doctor but provider was already off unit Review of Systems Review of Systems didn't sleep well last pm No all other systems are reviewed and are negative, unobtainable due to endotracheal tube, Unobtainable due to mental condition, Unobtainable due to mental status or Other Mental Status Exam Mental Status Exam Narrative: Would like to be sleeping better, but has particualr interest in particular medications and not in others- doesn' seem interested in professional opinion Patient Appearance: Unkempt Patient Orientation: Person, Place and Situation Level of Consciousness: Awake Patient Behavior: Restless and Resistive to Care Behavior Comments: seems annoyed by not getting what asks for with medications/ benzodiazipines or sleep medications Mood Description: Labile (seems a bit irritated or annoyed) Affect Description: Anxious Patient Cognition Impaired: No Ability to Follow Directions: Fair Speech Pattern: Clear Hallucinations: None Delusions: Not Present Thought Process: Intact and Goal Oriented Thought Content: positive for Perseveration Depressive Symptoms: Increased Anxiety and Insomnia Abnormal Motor Activity Signs and Symptoms: Restlessness Judgement: Fair Diagnostics Vital Signs (24Hr): Vital Signs - 24 hr 10/19/22 16:39 10/20/22 09:39 Temperature 97 F 97.5 F Pulse Rate 61 87 Respiratory Rate 16 18 Blood Pressure 119/58 L 122/58 L Pulse Oximetry 100 97 Oxygen Delivery Method Room Air Room Air BMI result Body Mass Index 23.6 Labs 10/09/22 08:22 Labs: Laboratory Results - last 48 hr 10/19/22 08:20 Total Bilirubin 0.3 Direct Bilirubin < 0.2 AST 19 ALT 16 Alkaline Phosphatase 35 L Total Protein 7.5 Albumin 4.8 Medications Medications Current Medications Acetaminophen (Acetaminophen 325 Mg Tablet) 650 mg PO Q6H PRN PRN Reason: Headache/Pain Mild Scale (1-3) Last Admin: 10/19/22 18:28 Dose: 650 mg Al Hydroxide/Mg Hydroxide (Magnesium Hydrox/Alum Hydrox 30 Ml Oral.Susp) 30 ml PO Q6H PRN PRN Reason: Heartburn/Nausea Last Admin: 10/15/22 09:01 Dose: 30 ml Bupropion HCl (Bupropion Hcl Xl 300 Mg Tab.Er.24h) 300 mg PO DAILY [facility] Last Admin: 10/20/22 09:30 Dose: 300 mg Chlordiazepoxide HCl (Chlordiazepoxide Hcl 5 Mg Capsule) 15 mg PO BID@899,1999 [facility] Last Admin: 10/20/22 09:29 Dose: 15 mg Chlorpromazine HCl (Chlorpromazine Hcl 100 Mg Tablet) 50 mg PO BEDTIME PRN PRN Reason: continued insomnia Chlorpromazine HCl (Chlorpromazine Hcl 25 Mg Tablet) 50 mg PO BEDTIME PRN PRN Reason: insomnia Clonidine HCl (Clonidine Hcl 0.1 Mg Tablet) 0.1 mg PO Q4H PRN; Protocol PRN Reason: anxiety Folic Acid (Folic Acid 1 Mg Tablet) 1 mg PO DAILY [facility] Last Admin: 10/20/22 09:29 Dose: 1 mg Gabapentin (Gabapentin 300 Mg Capsule) 600 mg PO TID [facility] Last Admin: 10/20/22 09:30 Dose: 600 mg Magnesium Hydroxide (Milk Of Magnesia 30 Ml Oral.Susp) 30 ml PO DAILY PRN PRN Reason: Constipation Mirtazapine (Mirtazapine 7.5 Mg Tablet) 7.5 mg PO BEDTIME [facility] Last Admin: 10/19/22 19:45 Dose: 7.5 mg Nicotine (Nicotine 21 Mg Patch.Td24) 21 mg TRANSDERMA DAILY [facility] Last Admin: 10/20/22 09:40 Dose: Not Given Nicotine Polacrilex (Nicotine Polacrilex 2 Mg Gum) 4 mg BUCCAL Q2H PRN PRN Reason: nicotine cravings Last Admin: 10/16/22 03:36 Dose: 4 mg Nicotine Polacrilex (Nicotine Polacrilex Lozenge 4 Mg Lozenge) 4 mg BUCCAL Q2H PRN PRN Reason: Nicotine Cravings Last Admin: 10/19/22 19:45 Dose: 4 mg Pt Own Med ( Disulfiram 250 Mg Tablets 250 Mg) 500 mg PO DAILY [facility] Last Admin: 10/20/22 09:33 Dose: 500 mg Olanzapine (Olanzapine 10 Mg Tablet) 10 mg PO BEDTIME PRN PRN Reason: insomnia/agitation Ondansetron HCl (Ondansetron Odt 4 Mg Tab.Rapdis) 4 mg TRANSLINGU Q6H PRN PRN Reason: nausea vomiting Last Admin: 10/15/22 08:11 Dose: 4 mg Thiamine HCl (Thiamine Hcl 100 Mg Tablet) 100 mg PO DAILY [facility] Last Admin: 10/20/22 09:30 Dose: 100 mg Zolpidem Tartrate (Zolpidem Tartrate 5 Mg Tablet) 10 mg PO BEDTIME PRN PRN Reason: Sleep Last Admin: 10/19/22 20:43 Dose: 10 mg Allergies Allergies Allergy/AdvReac Type Severity Reaction Status Date / Time sulfamethoxazole AdvReac Unknown aceptic Verified 10/09/22 07:21 [From Bactrim] meningitis trimethoprim [From Bactrim] AdvReac Unknown aceptic Verified 10/09/22 07:21 meningitis Assessment & Plan Assessment & Plan (1) MDD (major depressive disorder), recurrent episode, severe: Status: Acute Code(s): F33.2 - Major depressive disorder, recurrent severe without psychotic features Assessment and Plan: doesn't want miratzapine (2) PTSD (post-traumatic stress disorder): Status: Acute Code(s): F43.10 - Post-traumatic stress disorder, unspecified (3) Alcohol use disorder, severe, dependence: Status: Acute Code(s): F10.20 - Alcohol dependence, uncomplicated Assessment and Plan: co tremor but only seen by staff when pt knows staff is looking, also - vss doesn't seem to need higher dose benzo for physical withdrawl wonder if he is confusing cravings/not having intoxicated feeling mitigate feeling states Plan HPI: Patient is a 46-year-old male with history of refractory depression, alcohol abuse who presents for continued depression with SI.? Patient reports long hi story of depression dating back to childhood.? He says he gets admitted to psychiatric hospitals about 3 to 4 times a year for severe depression.? -chronic alcoholism for years complicates presentation; numerous medication trials many at adequate doses but most often concurrent with alcohol abuse -considering ECT; discussed with patient HOSPITAL COURSE: 10/10: ativan PRN per [facility] protocol.? gabapentin taper in place. ECT consult placed to Dr. Wooten. EKG WNL. medical consult placed for ECT clearance. 10/11:ativan taper - 8 mg today, then 6, 4, 2.; ECT planned for next week.increased trazodone to 150 QHS with 50 PRN, otherwise no changes to regimen aside from ativan taper. 10/12: ativan taper - 6 mg today, 4 saturday, 2 saturday.[facility] will arrange for ECT clearance per personal communication. increased trazodone to 250 mg QHS per pt request, otherwise no changes in mgmt. awaiting ECT clearance and scheduling. 10/14: Extend the Ativan taper. Reassess by primary team. Added Seroquel 50 mg HS. 10/15 Patient reports he remains depressed but suicidality has resolved. Multimedia Specialist agrees that given patient's decades of severe alcohol abuse and benzo use, he indeed could be experiencing a prolonged withdrawal; will start him on Librium and gabapentin and taper from there. Patient having some behavioral/characterological issues, going into female peers room (invited), despite being told not to. Multimedia Specialist discussed this with patient who says he will not go into any room at all other than his own for the remainder of this admission (if this behavior continues will consider discharge since there is some component of willful defiance). Discussed case with Dr. Wooten who agrees to proceed with ECT this Monday 10/16 ECT CANCELLED Patient says that he is doing much better. He he actually says that he is in a good mood and does not feel depressed at all, despite not being on any antidepressants. Decided to pursue medication management instead. Will restart Wellbutrin XL as patient reports he did well in the past on [address] Deshawn gleason who agrees to cancel ECT Discussed disulfiram (clinical writer reviewed risks/side effects of this medication including but not limited to risk of fulminant liver failure and risk of if a person for pursues alcohol while on this medication; patient ask questions and understood the risks and felt that the potential benefit is worth it and that likely nothing else will help him stay sober). Multimedia Specialist and patient discussed history again. Patient says that once his detox is over his depression traditionally clears up pretty well; he says the historical problem is typically that after he is detoxed, he is not re-prescribed benzodiazepines and starts to get overwhelmingly anxious, with social anxiety making it difficult for him to function around others; also flashbacks start to come back. He says all this results in just a relapse with alcohol and then the depression starts again. Patient said that on Vivitrol he mistakenly thought it was disulfiram and so did not drink any alcohol for 3 years, during which time he was on Wellbutrin and a benzodiazepine and said he felt overall in a good mood and doing well enough. The moment he found out that Vivitrol does not cause painful reaction upon ingesting alcohol, he drinks that very day. In continued discussion patient feels that his depression is mostly due to untreated anxiety crippling his functioning and PTSD which is then severely compounded when he relapses on alcohol. Discussed history of treatment and Patient has never had adequate therapy to deal with his childhood trauma and agrees that this is necessary for him to recover and that squelching traumatic memories is a large part of his alcoholism, Given this history, Discussed how ECT is less likely to be that effective to which patient agrees. Rather it seems that what patient needs is help staying sober during which time he can engage in trauma informed therapy and CBT for social anxiety. Patient shares how much he hates his addiction and the way it has ruined his life. He said he would like to try disulfiram. He also agrees to restart Wellbutrin. He says that on Wellbutrin 300 mg he did well but eventually it just stopped working. He did know it went to a higher dose and understands that sometimes life situations can produce anxiety/depression the can overwhelm medications making the medication seem unhelpful. -behaviors improved; changing back to Q15 10/17 mood remains improved patient sleeping a little more; agrees to increase Wellbutrin, titrating to 450; also agrees to try medications to help lower anxiety; patient gives permission to call and discussed case with his mother and gave clinical writer her phone number 10/18 patient remains in improved mood; agrees to tapering Librium and increasing gabapentin 10/19 patient reports hand tremor which started today; looks augmented with effort. Will keep Librium at 50 mg b.i.d. for another few days; will increase gabapentin to 600 mg t.i.d. to help. -gave 1 dose of Prozac however decided to change it to mirtazapine to see if that can help with sleep; Thorazine p.r.n. -verbal altercation with female peer however resolved on its own Plan: CV: Q 15 minute checks LOWERED back to Wellbutrin XL 300mg daily (some increased insomnia and pt did well for a time on 300mg in the past) START mirtazapine 7.5 mg q.h.s. START Thorazine 50 mg p.r.n. at bedtime with repeat dose for insomnia DC Zyprexa scheduled; will leave his p.r.n.; not helping patient's sleep so no need for added risk of side effects CONTINUE Librium to 15 mg b.i.d.; will taper and dc INCREASED to gabapentin 600 mg t.i.d.; for help with withdrawal and anxiety discontinue Seroquel; not helping with sleep Discontinue trazodone; not help him sleep Discontinued Zyprexa; not helping with sleep Medication trials (however most tried while engaged in severe alcohol abuse) Prozac, Zoloft, Lexapro, Effexor, Wellbutrin, Abilify, Risperdal, Seroquel, Zyprexa, Latuda, Tegretol, lithium Patient educated on: medication risk/benefits and therapeutic strategies Informed Consent: further education needed Reason for contiued inpatient stay Substantial Risk for: inability to function and rapid decompensation Time Spent With Patient Time: Total time managing care of this patient today ____ minutes.
[2022-10-20] MEDS: Nicotine Polacrilex Lozenge 4 MG LOZENGE BUCCAL ×4 (13:05→23:51)
[2022-10-20 17:30] VITALS: BP 107/59; PULSE 94; TEMP 36.5
[2022-10-20] MEDS: chlorproMAZINE HCl 25 MG TABLET 50 MG PO (19:21)
[2022-10-20] MEDS: Zolpidem Tartrate 5 MG TABLET 10 MG PO (19:22)
[2022-10-20] MEDS: chlorproMAZINE HCl 100 MG TABLET 50 MG PO (19:26)
[2022-10-20] MEDS: OLANZapine 10 MG TABLET PO (21:07)
[2022-10-21] MEDS: Gabapentin 300 MG CAPSULE 600 MG PO ×3 (07:50→20:57)
[2022-10-21] MEDS: Folic Acid 1 MG TABLET PO (07:50)
[2022-10-21] MEDS: Thiamine HCL 100 MG TABLET PO (07:50)
[2022-10-21] MEDS: buPROPion HCl XL 300 MG TAB.ER.24H PO (07:50)
[2022-10-21] MEDS: chlordiazePOXIDE HCl 5 MG CAPSULE 15 MG PO ×2 (07:50→19:24)
[2022-10-21] MEDS: Nicotine Polacrilex Lozenge 4 MG LOZENGE BUCCAL ×5 (07:59→23:09)
[2022-10-21 08:28] VITALS: BP 125/56; PULSE 108; RESP 18; TEMP 36.3; O2SAT 96
--- NOTE | 2022-10-21 09:59 | HO.PSYCHPN ---
Subjective Subjective Date of Service: 10/21/22 Reason For Visit: unspecified bipolar disorder, alcohol d/o severe Subjective Notes: Conditional Voluntary Healthcare Proxy: No Guardianship: No Medical Problems Affecting Mental Status: No (though he thinks he is in withdrawl - ) Interim History: 46 yo male reports 20 + hx of being on benzodiazepines, but complicated by alcohol use disorder- Also patient doesn't have current outpatient provider He was willing to reconsider trial of mirtazapine today Medication Compliance: Intermittent Side effects from medications: No Attending Groups: Yes (hopes to go to [facility]) Review of Systems Acute medical concerns: No Medical Review of Systems: unchanged (continues to complain of tremor though VSS no other sys) Mental Status Exam Mental Status Exam Patient Appearance: Unkempt Patient Orientation: Person, Place, Time and Situation Level of Consciousness: Awake Patient Behavior: Appropriate, Cooperative and Good Eye Contact Mood Description: Anxious Affect Description: Apprehensive Patient Cognition Impaired: No Ability to Follow Directions: Fair Speech Pattern: Clear Hallucinations: None Delusions: Not Present Thought Content: positive for Intact and positive for Goal Oriented Depressive Symptoms: Increased Irritability Abnormal Motor Activity Signs and Symptoms: Hyperactivity Judgement: Fair Diagnostics Vital Signs (24Hr): Vital Signs - 24 hr 10/20/22 17:30 10/21/22 08:28 Temperature 97.7 F 97.4 F Pulse Rate 94 108 H Respiratory Rate 18 Blood Pressure 107/59 L 125/56 L Pulse Oximetry 96 Oxygen Delivery Method Room Air BMI result Body Mass Index 23.6 Labs 10/09/22 08:22 Medications Medications Current Medications Acetaminophen (Acetaminophen 325 Mg Tablet) 650 mg PO Q6H PRN PRN Reason: Headache/Pain Mild Scale (1-3) Last Admin: 10/19/22 18:28 Dose: 650 mg Al Hydroxide/Mg Hydroxide (Magnesium Hydrox/Alum Hydrox 30 Ml Oral.Susp) 30 ml PO Q6H PRN PRN Reason: Heartburn/Nausea Last Admin: 10/15/22 09:01 Dose: 30 ml Bupropion HCl (Bupropion Hcl Xl 300 Mg Tab.Er.24h) 300 mg PO DAILY [facility] Last Admin: 10/21/22 07:50 Dose: 300 mg Chlordiazepoxide HCl (Chlordiazepoxide Hcl 5 Mg Capsule) 15 mg PO BID@0900,1999 [facility] Last Admin: 10/21/22 07:50 Dose: 15 mg Chlorpromazine HCl (Chlorpromazine Hcl 100 Mg Tablet) 50 mg PO BEDTIME [facility] Last Admin: 10/20/22 19:26 Dose: 50 mg Chlorpromazine HCl (Chlorpromazine Hcl 25 Mg Tablet) 50 mg PO BEDTIME PRN PRN Reason: insomnia Last Admin: 10/20/22 19:21 Dose: 50 mg Clonidine HCl (Clonidine Hcl 0.1 Mg Tablet) 0.1 mg PO Q4H PRN; Protocol PRN Reason: anxiety or insomnia Folic Acid (Folic Acid 1 Mg Tablet) 1 mg PO DAILY [facility] Last Admin: 10/21/22 07:50 Dose: 1 mg Gabapentin (Gabapentin 300 Mg Capsule) 600 mg PO TID [facility] Last Admin: 10/21/22 07:50 Dose: 600 mg Magnesium Hydroxide (Milk Of Magnesia 30 Ml Oral.Susp) 30 ml PO DAILY PRN PRN Reason: Constipation Nicotine (Nicotine 21 Mg Patch.Td24) 21 mg TRANSDERMA DAILY [facility] Last Admin: 10/21/22 07:51 Dose: Not Given Nicotine Polacrilex (Nicotine Polacrilex 2 Mg Gum) 4 mg BUCCAL Q2H PRN PRN Reason: nicotine cravings Last Admin: 10/16/22 03:36 Dose: 4 mg Nicotine Polacrilex (Nicotine Polacrilex Lozenge 4 Mg Lozenge) 4 mg BUCCAL Q2H PRN PRN Reason: Nicotine Cravings Last Admin: 10/21/22 07:59 Dose: 4 mg Pt Own Med ( Disulfiram 250 Mg Tablets 250 Mg) 500 mg PO DAILY [facility] Last Admin: 10/21/22 07:53 Dose: 500 mg Olanzapine (Olanzapine 10 Mg Tablet) 10 mg PO BEDTIME PRN PRN Reason: insomnia/agitation Last Admin: 10/20/22 21:07 Dose: 10 mg Ondansetron HCl (Ondansetron Odt 4 Mg Tab.Rapdis) 4 mg TRANSLINGU Q6H PRN PRN Reason: nausea vomiting Last Admin: 10/15/22 08:11 Dose: 4 mg Thiamine HCl (Thiamine Hcl 100 Mg Tablet) 100 mg PO DAILY [facility] Last Admin: 10/21/22 07:50 Dose: 100 mg Zolpidem Tartrate (Zolpidem Tartrate 5 Mg Tablet) 10 mg PO BEDTIME PRN PRN Reason: Sleep Last Admin: 10/20/22 19:22 Dose: 10 mg Allergies Allergies Allergy/AdvReac Type Severity Reaction Status Date / Time sulfamethoxazole AdvReac Unknown aceptic Verified 10/09/22 07:21 [From Bactrim] meningitis trimethoprim [From Bactrim] AdvReac Unknown aceptic Verified 10/09/22 07:21 meningitis Assessment & Plan Assessment & Plan (1) MDD (major depressive disorder), recurrent episode, severe: Status: Acute Code(s): F33.2 - Major depressive disorder, recurrent severe without psychotic features Assessment and Plan: doesn't want miratzapine 10/20/22 10/21/22 willing to reconsider (2) PTSD (post-traumatic stress disorder): Status: Acute Code(s): F43.10 - Post-traumatic stress disorder, unspecified (3) Alcohol use disorder, severe, dependence: Status: Acute Code(s): F10.20 - Alcohol dependence, uncomplicated Assessment and Plan: co tremor but only seen by staff when pt knows staff is looking, also - vss doesn't seem to need higher dose benzo for physical withdrawl wonder if he is confusing cravings/not having intoxicated feeling mitigate feeling states Plan HPI: Patient is a 46-year-old male with history of refractory depression, alcohol abuse who presents for continued depression with SI.? Patient reports long history of depression dating back to childhood.? He says he gets admitted to psychiatric hospitals about 3 to 4 times a year for severe depression.? -chronic alcoholism for years complicates presentation; numerous medication trials many at adequate doses but most often concurrent with alcohol abuse -considering ECT; discussed with patient HOSPITAL COURSE: 10/10: ativan PRN per [facility] protocol.? gabapentin taper in place. ECT consult placed to Dr. Wooten. EKG WNL. medical consult placed for ECT clearance. 10/11:ativan taper - 8 mg today, then 6, 4, 2.; ECT planned for next week.increased trazodone to 150 QHS with 50 PRN, otherwise no changes to regimen aside from ativan taper. 10/12: ativan taper - 6 mg today, 4 saturday, 2 saturday.edwige will arrange for ECT clearance per personal communication. increased trazodone to 250 mg QHS per pt request, otherwise no changes in mgmt. awaiting ECT clearance and scheduling. 10/14: Extend the Ativan taper. Reassess by primary team. Added Seroquel 50 mg HS. 10/15 Patient reports he remains depressed but suicidality has resolved. Manager Corporate Responsibility agrees that given patient's decades of severe alcohol abuse and benzo use, he indeed could be experiencing a prolonged withdrawal; will start him on Librium and gabapentin and taper from there. Patient having some behavioral/characterological issues, going into female peers room (invited), despite being told not to. Manager Corporate Responsibility discussed this with patient who says he will not go into any room at all other than his own for the remainder of this admission (if this behavior continues will consider discharge since there is some component of willful defiance). Discussed case with Dr. Wooten who agrees to proceed with ECT this Monday 10/16 ECT CANCELLED Patient says that he is doing much better. He he actually says that he is in a good mood and does not feel depressed at all, despite not being on any antidepressants. Decided to pursue medication management instead. Will restart Wellbutrin XL as patient reports he did well in the past on [address] Wooten who agrees to cancel ECT Discussed disulfiram (teletypewriter installer reviewed risks/side effects of this medication including but not limited to risk of fulminant liver failure and risk of if a person for pursues alcohol while on this medication; patient ask questions and understood the risks and felt that the potential benefit is worth it and that likely nothing else will help him stay sober). Manager Corporate Responsibility and patient discussed history again. Patient says that once his detox is over his depression traditionally clears up pretty well; he says the historical problem is typically that after he is detoxed, he is not re-prescribed benzodiazepines and starts to get overwhelmingly anxious, with social anxiety making it difficult for him to function around others; also flashbacks start to come back. He says all this results in just a relapse with alcohol and then the depression starts again. Patient said that on Vivitrol he mistakenly thought it was disulfiram and so did not drink any alcohol for 3 years, during which time he was on Wellbutrin and a benzodiazepine and said he felt overall in a good mood and doing well enough. The moment he found out that Vivitrol does not cause painful reaction upon ingesting alcohol, he drinks that very day. In continued discussion patient feels that his depression is mostly due to untreated anxiety crippling his functioning and PTSD which is then severely compounded when he relapses on alcohol. Discussed history of treatment and Patient has never had adequate therapy to deal with his childhood trauma and agrees that this is necessary for him to recover and that squelching traumatic memories is a large part of his alcoholism, Given this history, Discussed how ECT is less likely to be that effective to which patient agrees. Rather it seems that what patient needs is help staying sober during which time he can engage in trauma informed therapy and CBT for social anxiety. Patient shares how much he hates his addiction and the way it has ruined his life. He said he would like to try disulfiram. He also agrees to restart Wellbutrin. He says that on Wellbutrin 300 mg he did well but eventually it just stopped working. He did know it went to a higher dose and understands that sometimes life situations can produce anxiety/depression the can overwhelm medications making the medication seem unhelpful. -behaviors improved; changing back to Q15 10/17 mood remains improved patient sleeping a little more; agrees to increase Wellbutrin, titrating to 450; also agrees to try medications to help lower anxiety; patient gives permission to call and discussed case with his mother and gave teletypewriter installer her phone number 10/18 patient remains in improved mood; agrees to tapering Librium and increasing gabapentin 10/19 patient reports hand tremor which started today; looks augmented with effort. Will keep Librium at 50 mg b.i.d. for another few days; will increase gabapentin to 600 mg t.i.d. to help. -gave 1 dose of Prozac however decided to change it to mirtazapine to see if that can help with sleep; Thorazine p.r.n. -verbal altercation with female peer however resolved on its own Plan: CV: Q 15 minute checks LOWERED back to Wellbutrin XL 300mg daily (some increased insomnia and pt did well for a time on 300mg in the past) START mirtazapine 7.5 mg q.h.s. START Thorazine 50 mg p.r.n. at bedtime with repeat dose for insomnia DC Zyprexa scheduled; will leave his p.r.n.; not helping patient's sleep so no need for added risk of side effects CONTINUE Librium to 15 mg b.i.d.; will taper and dc INCREASED to gabapentin 600 mg t.i.d.; for help with withdrawal and anxiety discontinue Seroquel; not helping with sleep Discontinue trazodone; not help him sleep Discontinued Zyprexa; not helping with sleep Medication trials (however most tried while engaged in severe alcohol abuse) Prozac, Zoloft, Lexapro, Effexor, Wellbutrin, Abilify, Risperdal, Seroquel, Zyprexa, Latuda, Tegretol, lithium Patient educated on: medication risk/benefits Informed Consent: understands Reason for contiued inpatient stay Substantial Risk for: rapid decompensation Time Spent With Patient Time: Total time managing care of this patient today ____ minutes.
[2022-10-21] MEDS: Acetaminophen 325 MG TABLET 650 MG PO (11:41)
[2022-10-21 20:21] VITALS: BP 132/62; PULSE 84; RESP 14; TEMP 36.8
[2022-10-21] MEDS: Mirtazapine 15 MG TABLET PO (20:57)
[2022-10-21] MEDS: chlorproMAZINE HCl 100 MG TABLET 50 MG PO (20:57)
[2022-10-21] MEDS: Zolpidem Tartrate 5 MG TABLET 10 MG PO (20:57)
[2022-10-22] MEDS: Nicotine Polacrilex Lozenge 4 MG LOZENGE BUCCAL ×2 (00:38→13:21)
[2022-10-22] MEDS: chlorproMAZINE HCl 25 MG TABLET 50 MG PO (00:38)
[2022-10-22] MEDS: Thiamine HCL 100 MG TABLET PO (08:04)
[2022-10-22] MEDS: Folic Acid 1 MG TABLET PO (08:04)
[2022-10-22] MEDS: chlordiazePOXIDE HCl 5 MG CAPSULE 15 MG PO (08:04)
[2022-10-22] MEDS: Gabapentin 300 MG CAPSULE 600 MG PO ×2 (08:04→14:41)
[2022-10-22] MEDS: buPROPion HCl XL 300 MG TAB.ER.24H PO (08:04)
[2022-10-22 08:05] VITALS: BP 95/64; PULSE 98; RESP 18; TEMP 35.9; O2SAT 98
[2022-10-22 08:50] LABS: Alanine Aminotransferase 19 U/L (0-40); Albumin Level 4.4 g/dL (3.5-5.0); Alkaline Phosphatase 41 U/L (39-117); Aspartate Amino Transferase 26 U/L (5-37); Bilirubin Direct 0.2 mg/dL (0.0-0.5); Bilirubin Total 0.6 mg/dL (0.0-1.0); Total Protein 6.8 g/dL (6.5-8.0)
--- NOTE | 2022-10-22 11:20 | P.PNPSI_ITS ---
Subjective Subjective Date of Service: 10/22/22 Reason For Visit: unspecified bipolar disorder, alcohol d/o severe Interim History: Met with patient; discussed in teams; reviewed notes over the weekend Patient reported continued good mood, no SI. He still struggled with anxiety but felt it was improved. Patient wanted to get off mirtazapine and instead restart Prozac; otherwise patient reports tolerating medication well and no complaints about any side effects. Over the weekend patient had to be placed back on Q 5s because he continued to go into female peers rooms; despite this being explain to him was difficult to redirect. [employer] Pelt Grader had discussed this with him when it happened the 1st time and that this was not congruent with it in patient stay. [employer] Grader discussed it again; patient denied having gone into any female peers rooms despite several staff reporting otherwise; however he said it is fine that he has stable, safe and agreed with discharging. He agrees that His medications have been titrated and there is nothing else to do regarding medication management. At this point further treatment is appropriate for the outpatient setting as patient needs to engage in therapy. He is returning to his mother's and father's house is both of whom are supportive. His mother agrees to hold on to medication, including giving him an abuse and dispensing clonazepam which is part of the final taper off of benzodiazepines. [employer] And Pelt Grader again reviewed medication risks/side effects, foods to avoid regarding disulfiram and also gave patient a handout of the same. Patient thanked keno writer/runner for help received and said he is hopeful to remain sober. Mental Status Exam Mental Status Exam Narrative: Pt is alert and oriented; behavior is cooperative; patient is not in distress; dressed in casual attire with adequate hygiene; mood is described as ok and affect congruent; eye contact appropriate; Speech is normal rate, volume and prosody and not pressured; no psychomotor agitation/retardation present; thought process is organized and goal directed; Thought content is on tx; otherwise pertinent to relevant topics and without any delusional content, paranoid ideati ons or grandiosity; denies any SI/HI. There is no evidence of perceptual disturbance. Patients insight and judgment are intact. Diagnostics Vital Signs (24Hr): Vital Signs - 24 hr 10/21/22 20:21 10/22/22 08:05 Temperature 98.3 F 96.7 F L Pulse Rate 84 98 Respiratory Rate 14 18 Blood Pressure 132/62 95/64 Pulse Oximetry 98 Oxygen Delivery Method Room Air BMI result Body Mass Index 23.6 Labs 10/09/22 08:22 Labs: Laboratory Results - last 48 hr 10/22/22 08:08 Total Bilirubin 0.6 Direct Bilirubin 0.2 AST 26 ALT 19 Alkaline Phosphatase 41 Total Protein 6.8 Albumin 4.4 Medications Medications Current Medications Acetaminophen (Acetaminophen 325 Mg Tablet) 650 mg PO Q6H PRN PRN Reason: Headache/Pain Mild Scale (1-3) Last Admin: 10/21/22 11:41 Dose: 650 mg Al Hydroxide/Mg Hydroxide (Magnesium Hydrox/Alum Hydrox 30 Ml Oral.Susp) 30 ml PO Q6H PRN PRN Reason: Heartburn/Nausea Last Admin: 10/15/22 09:01 Dose: 30 ml Bupropion HCl (Bupropion Hcl Xl 300 Mg Tab.Er.24h) 300 mg PO DAILY [facility] Last Admin: 10/22/22 08:04 Dose: 300 mg Chlordiazepoxide HCl (Chlordiazepoxide Hcl 5 Mg Capsule) 15 mg PO BID@0900,1999 [facility] Last Admin: 10/22/22 08:04 Dose: 15 mg Chlorpromazine HCl (Chlorpromazine Hcl 100 Mg Tablet) 50 mg PO BEDTIME [facility] Last Admin: 10/21/22 20:57 Dose: 50 mg Chlorpromazine HCl (Chlorpromazine Hcl 25 Mg Tablet) 50 mg PO BEDTIME PRN PRN Reason: insomnia Last Admin: 10/22/22 00:38 Dose: 50 mg Clonidine HCl (Clonidine Hcl 0.1 Mg Tablet) 0.1 mg PO Q4H PRN; Protocol PRN Reason: anxiety or insomnia Folic Acid (Folic Acid 1 Mg Tablet) 1 mg PO DAILY [facility] Last Admin: 10/22/22 08:04 Dose: 1 mg Gabapentin (Gabapentin 300 Mg Capsule) 600 mg PO TID [facility] Last Admin: 10/22/22 08:04 Dose: 600 mg Magnesium Hydroxide (Milk Of Magnesia 30 Ml Oral.Susp) 30 ml PO DAILY PRN PRN Reason: Constipation Mirtazapine (Mirtazapine 15 Mg Tablet) 15 mg PO BEDTIME [facility] Last Admin: 10/21/22 20:57 Dose: 15 mg Nicotine (Nicotine 21 Mg Patch.Td24) 21 mg TRANSDERMA DAILY [facility] Last Admin: 10/22/22 08:18 Dose: Not Given Nicotine Polacrilex (Nicotine Polacrilex 2 Mg Gum) 4 mg BUCCAL Q2H PRN PRN Reason: nicotine cravings Last Admin: 10/16/22 03:36 Dose: 4 mg Nicotine Polacrilex (Nicotine Polacrilex Lozenge 4 Mg Lozenge) 4 mg BUCCAL Q2H PRN PRN Reason: Nicotine Cravings Last Admin: 10/22/22 00:38 Dose: 4 mg Pt Own Med ( Disulfiram 250 Mg Tablets 250 Mg) 500 mg PO DAILY [facility] Last Admin: 10/22/22 08:14 Dose: 500 mg Olanzapine (Olanzapine 10 Mg Tablet) 10 mg PO BEDTIME PRN PRN Reason: insomnia/agitation Last Admin: 10/20/22 21:07 Dose: 10 mg Ondansetron HCl (Ondansetron Odt 4 Mg Tab.Rapdis) 4 mg TRANSLINGU Q6H PRN PRN Reason: nausea vomiting Last Admin: 10/15/22 08:11 Dose: 4 mg Thiamine HCl (Thiamine Hcl 100 Mg Tablet) 100 mg PO DAILY [facility] Last Admin: 10/22/22 08:04 Dose: 100 mg Zolpidem Tartrate (Zolpidem Tartrate 5 Mg Tablet) 10 mg PO BEDTIME PRN PRN Reason: Sleep Last Admin: 10/21/22 20:57 Dose: 10 mg Allergies Allergies Allergy/AdvReac Type Severity Reaction Status Date / Time sulfamethoxazole AdvReac Unknown aceptic Verified 10/09/22 07:21 [From Bactrim] meningitis trimethoprim [From Bactrim] AdvReac Unknown aceptic Verified 10/09/22 07:21 meningitis Assessment & Plan Assessment & Plan (1) MDD (major depressive disorder), recurrent episode, severe: Status: Acute Code(s): F33.2 - Major depressive disorder, recurrent severe without psychotic features Assessment and Plan: doesn't want miratzapine 10/20/22 10/21/22 willing to reconsider (2) PTSD (post-traumatic stress disorder): Status: Acute Code(s): F43.10 - Post-traumatic stress disorder, unspecified (3) Alcohol use disorder, severe, dependence: Status: Acute Code(s): F10.20 - Alcohol dependence, uncomplicated Assessment and Plan: co tremor but only seen by staff when pt knows staff is looking, also - vss doesn't seem to need higher dose benzo for physical withdrawl wonder if he is confusing cravings/not having intoxicated feeling mitigate feeling states Plan HPI: Patient is a 46-year-old male with history of refractory depression, alcohol abuse who presents for continued depression with SI.? Patient reports long history of depression dating back to childhood.? He says he gets admitted to psychiatric hospitals about 3 to 4 times a year for severe depression.? -chronic alcoholism for years complicates presentation; numerous medication trials many at adequate doses but most often concurrent with alcohol abuse -considering ECT; discussed with patient HOSPITAL COURSE: 10/10: ativan PRN per [facility] protocol.? gabapentin taper in place. ECT consult placed to Dr. Wooten. EKG WNL. medical consult placed for ECT clearance. 10/11:ativan taper - 8 mg today, then 6, 4, 2.; ECT planned for next week.increased trazodone to 150 QHS with 50 PRN, otherwise no changes to regimen aside from ativan taper. 10/12: ativan taper - 6 mg today, 4 saturday, 2 saturday.natasha will arrange for ECT clearance per personal communication. increased trazodone to 250 mg QHS per pt request, otherwise no changes in mgmt. awaiting ECT clearance and scheduling. 10/14: Extend the Ativan taper. Reassess by primary team. Added Seroquel 50 mg HS. 10/15 Patient reports he remains depressed but suicidality has resolved. [employer] Grader agrees that given patient's decades of severe alcohol abuse and benzo use, he indeed could be experiencing a prolonged withdrawal; will start him on Librium and gabapentin and taper from there. Patient having some behavioral/characterological issues, going into female peers room (invited), despite being told not to. [employer] Grader discussed this with patient who says he will not go into any room at all other than his own for the remainder of this admission (if this behavior continues will consider discharge since there is some component of willful defiance). Discussed case with Dr. Wooten who agrees to proceed with ECT this Monday 10/16 ECT CANCELLED Patient says that he is doing much better. He he actually says that he is in a good mood and does not feel depressed at all, despite not being on any antidepressants. Decided to pursue medication management instead. Will restart Wellbutrin XL as patient reports he did well in the past on [address] Wooten who agrees to cancel ECT Discussed disulfiram (keno writer/runner reviewed risks/side effects of this medication including but not limited to risk of fulminant liver failure and risk of if a person for pursues alcohol while on this medication; patient ask questions and understood the risks and felt that the potential benefit is worth it and that likely nothing else will help him stay sober). [employer] And Pelt Grader and patient discussed history again. Patient says that once his detox is over his depression traditionally clears up pretty well; he says the historical problem is typically that after he is detoxed, he is not re-prescribed benzodiazepines and starts to get overwhelmingly anxious, with social anxiety making it difficult for him to function around others; also flashbacks start to come back. He says all this results in just a relapse with alcohol and then the depression starts again. Patient said that on Vivitrol he mistakenly thought it was disulfiram and so did not drink any alcohol for 3 years, during which time he was on Wellbutrin and a benzodiazepine and said he felt overall in a good mood and doing well enough. The moment he found out that Vivitrol does not cause painful reaction upon ingesting alcohol, he drinks that very day. In continued discussion patient feels that his depression is mostly due to untreated anxiety crippling his functioning and PTSD which is then severely compounded when he relapses on alcohol. Discussed history of treatment and Patient has never had adequate therapy to deal with his childhood trauma and agrees that this is necessary for him to recover and that squelching traumatic memories is a large part of his alcoholism, Given this history, Discussed how ECT is less likely to be that effective to which patient agrees. Rather it seems that what patient needs is help staying sober during which time he can engage in trauma informed therapy and CBT for social anxiety. Patient shares how much he hates his addiction and the way it has ruined his life. He said he would like to try disulfiram. He also agrees to restart Wellbutrin. He says that on Wellbutrin 300 mg he did well but eventually it just stopped working. He did know it went to a higher dose and understands that sometimes life situations can produce anxiety/depression the can overwhelm medications making the medication seem unhelpful. -behaviors improved; changing back to Q15 10/17 mood remains improved patient sleeping a little more; agrees to increase Wellbutrin, titrating to 450; also agrees to try medications to help lower anxiety; patient gives permission to call and discussed case with his mother and gave keno writer/runner her phone number 10/18 patient remains in improved mood; agrees to tapering Librium and increasing gabapentin 10/19 patient reports hand tremor which started today; looks augmented with effort. Will keep Librium at 50 mg b.i.d. for another few days; will increase gabapentin to 600 mg t.i.d. to help. -gave 1 dose of Prozac however decided to change it to mirtazapine to see if that can help with sleep; Thorazine p.r.n. -verbal altercation with female peer however resolved on its own 10/22 Patient reported continued good mood, no SI. He still struggled with anxiety but felt it was improved. Patient wanted to get off mirtazapine and instead restart Prozac; otherwise patient reports tolerating medication well and no complaints about any side effects. Over the weekend patient had to be placed back on Q 5s because he continued to go into female peers rooms; despite this being explain to him was difficult to redirect. [employer] And Pelt Grader had discussed this with him when it happened the 1st time and that this was not congruent with it in patient stay. [employer] And Pelt Grader discussed it again; patient denied having gone into any female peers rooms despite several staff reporting otherwise; however he said it is fine that he has stable, safe and agreed with discharging. He agrees that His medications have been titrated and there is nothing else to do regarding medication management. At this point further treatment is appropriate for the outpatient setting as patient needs to engage in therapy. He is returning to his mother's and father's house is both of whom are supportive. His mother agrees to hold on to medication, including giving him an abuse and dispensing clonazepam which is part of the final taper off of benzodiazepines. [employer] And Pelt Grader again reviewed medication risks/side effects, foods to avoid regarding disulfiram and also gave patient a handout of the same. Patient thanked keno writer/runner for help received and said he is hopeful to remain sober. Plan: CV: Q 15 minute checks Wellbutrin XL 300mg daily (some increased insomnia and pt did well for a time on 300mg in the past) dc mirtazapine restart Prozac continue Thorazine 50 mg p.r.n. at bedtime with repeat dose for insomnia DC Zyprexa scheduled; will leave his p.r.n.; not helping patient's sleep so no need for added risk of side effects dc Librium; give clonazepam 0.5mg BID for month as final taper; mother will hold on to medication and dispense. gabapentin 600 mg t.i.d.; for help with withdrawal and anxiety In addition to writers usual discussion of risks/side-effects of Disulfiram, keno writer/runner also gave patient following information taken from [employer]. [employer] P[employer] Grader further reviewed risks/symptoms/signs of liver toxicity and need to go to Emergency Department immediately should these occur. Pt asked pertinent questions and was able to understand information and decided that given his long hx of struggles with alcohol abuse the potential benefit of disulfiram outweighed risks. discontinue Seroquel; not helping with sleep Discontinue trazodone; not help him sleep Discontinued Zyprexa; not helping with sleep Medication trials (however most tried while engaged in severe alcohol abuse) Prozac, Zoloft, Lexapro, Effexor, Wellbutrin, Abilify, Risperdal, Seroquel, Zyprexa, Latuda, Tegretol, lithium Patient educated on: diagnosis, medication risk/benefits and substance abuse Informed Consent: understands Reason for contiued inpatient stay Substantial Risk for: stable for discharge Time Spent With Patient Time: Total time managing care of this patient today ____ minutes.
--- NOTE | 2022-10-22 14:51 | PM.PSYDC ---
DS: Providers Provider Date of Service: 10/22/22 Date of admission: 10/08/22 22:21 Date of discharge: 10/22/22 Primary care physician: Ladonna Kenny MD Attending physician on admission: Nikolas Lopez Consults: 10/08/22 22:41 Consult to Hospitalist Routine Consulting Provider: Hospitalist Reason For Exam: medical H&P AND physical for ECT 10/10/22 14:02 Consult to Mental Health Routine Consulting Provider: Ike Wooten Reason for consultation: ECT for Tx-refractory depression (+ EtOH use d/o) Has provider been notified: No 10/10/22 14:03 Consult to Hospitalist Routine Consulting Provider: Hospitalist Reason For Exam: ECT clearance DS: Diagnosis Discharge Diagnosis (1) MDD (major depressive disorder), recurrent episode, severe: Status: Acute (2) PTSD (post-traumatic stress disorder): Status: Acute (3) Alcohol use disorder, severe, dependence: Status: Acute DS: Medications Discharge Medications Home Medications: Previous Rx's Medication Instructions Recorded bupropion HCl 300 mg 24 hr tablet, 300 mg PO DAILY 30 days #30 tabs 10/22/22 extended release chlorpromazine 50 mg tablet 50 mg PO BEDTIME PRN insomnia 30 10/22/22 days #30 tabs clonazepam 0.5 mg tablet 0.5 mg PO BID 30 days #60 tabs 10/22/22 disulfiram 250 mg tablet 250 mg PO DAILY 30 days #30 tabs 10/22/22 disulfiram 250 mg tablet 500 mg PO DAILY 9 days #18 tabs 10/22/22 fluoxetine 10 mg capsule (Prozac) 10 mg PO DAILY 30 days #30 caps 10/22/22 gabapentin 600 mg tablet 600 mg PO TID 30 days #90 tabs 10/22/22 nicotine (polacrilex) 4 mg buccal 4 mg buccal Q2H PRN Nicotine 10/22/22 lozenge Cravings 30 days #81 ea zolpidem 10 mg tablet 10 mg PO BEDTIME PRN insomnia 30 10/22/22 days #30 tabs Mental Status Exam Mental Status Exam Narrative: Pt is alert and oriented; behavior is cooperative; patient is not in distress; dressed in casual attire with adequate hygiene; mood is described as ok and affect congruent; eye contact appropriate; Speech is normal rate, volume and prosody and not pressured; no psychomotor agitation/retardation present; thought process is organized and goal directed; Thought content is on tx; otherwise pertinent to relevant topics and without any delusional content, paranoid ideations or grandiosity; denies any SI/HI. There is no evidence of perceptual disturbance. Patients insight and judgment are intact. Data Data Completed and Pending Completed studies during hospitalization [Text1]: 10/19/22 10/22/22 08:20 08:08 Total Bilirubin 0.3 0.6 Direct Bilirubin < 0.2 0.2 AST 19 26 ALT 16 19 Alkaline Phosphatase 35 L 41 Total Protein 7.5 6.8 Albumin 4.8 4.4 DS: Summary Hospital Course Hospital Course: HPI: Patient is a 46-year-old male with history of refractory depression, alcohol abuse who presents for continued depression with SI.? Patient reports long history of depression dating back to childhood.? He says he gets admitted to psychiatric hospitals about 3 to 4 times a year for severe depression.? -chronic alcoholism for years complicates presentation; numerous medication trials many at adequate doses but most often concurrent with alcohol abuse -considering ECT; discussed with patient HOSPITAL COURSE: On admission, patient depressed; on CIWA and with Ativan taper; despite depression and anxiety SI resolved. ECT consult placed since initially, it seems that patient had filled most antidepressant medications; no antidepressants started at this time. However after several days on the unit, as withdrawal subsided and anxiety treated with extended benzodiazepine taper, patient's mood significantly improved with noticeably bright affect. Patient was socializing on the unit with peers, looking calm and relaxed. Patient corroborated that he is doing much better.? He he actually says that he is in a good mood and does not feel depressed at all, despite not being on any antidepressants.? Patient Decided to pursue medication management instead.? Will restart Wellbutrin XL (which had helped for quiet a while in the past) as patient reports he did well on 300 mg.? Discussed case with Dr. Wotoen who agrees to cancel ECT. Also discussed disulfiram which patient wanted to start. Automobile Insurance Claim Examiner reviewed risks/side effects of this medication including but not limited to risk of fulminant liver failure and risk of if a person for pursues alcohol while on this medication; patient ask questions and understood the risks and felt that the potential benefit is worth it and that likely nothing else will help him stay sober. Vivitrol did not work. Automobile Insurance Claim Examiner and patient discussed history again.? Patient says that once his detox is over his depression traditionally clears up pretty well; he says the historical problem is typically that after he is detoxed, he is not re-prescribed benzodiazepines and starts to get overwhelmingly anxious, with social anxiety making it difficult for him to function around others; also flashbacks start to come back.? He says all this results in just a relapse with alcohol and then the depression starts again. Patient agreed that sobriety and therapy with help with medication management was like the best course of treatment; patient had ambivalence about therapy but agreed it was necessary. On the unit, patient was overly flirtatious with several female peers and went into their rooms; he did not respond well to redirection and had to be on Q 5s. Patient understood that this was against unit policy and was not conducive to remain in the unit. Although clearly seen by several staff going into female peers rooms, patient said he never did so but always remain on the threshold; nevertheless he said that nothing even close will occur again and for several days, he adhere to policy. Patient continued to attend groups and was forthcoming and 1 on 1 sessions; he struggled with having lowered Librium dose and so gabapentin was increased. Patient's mother was involved; she agrees that when patient returns home she will both dispense disulfiram and all his other medications including gabapentin and any remaining benzos from a benzo taper. Patient was started on mirtazapine but it did not help with insomnia and so he was restarted on Prozac for help with PTSD. For insomnia he was started on Thorazine low-dose which he said was mildly helpful; patient has an patient prescription for Ambien which was continued. Patient remained in good mood; he still struggled with anxiety but felt he was overall able to cope; he remained without any SI throughout admission and was future oriented, hoping to stay sober post discharge; patient felt stable and ready for discharge; he agreed that medication management was appropriate and no changes needed at this time and team proceeded with discharge and aftercare planning. A few days before planned discharge, Patient again was seen by several staff going into female patient's room; he denied this, was difficult to redirect and needed to be placed on Q 5s. Because of this continued behavior, team agreed that staying on the unit was no longer conducive to patient's treatment or milieu environment and proceeded with discharge. Autom[employer] Insurance Claim Examiner discussed it with patient who again denied it, despite several staff reporting otherwise, but agreed with discharge, feeling stable, safe and that medication management is adequate.? Team agrees that further treatment is appropriate for the outpatient setting as patient needs to engage in outpt therapy.? He is returning to his mother's and father's house is both of whom are supportive.? His mother agrees to hold on to medication, including giving him an abuse and dispensing clonazepam which is part of the final taper off of benzodiazepines.? Autom[employer] Insurance Claim Examiner again reviewed medication risks/side effects, foods to avoid regarding disulfiram and also gave patient a handout of the same.? Patient thanked law writer for help received and said he is hopeful to remain sober. Past Medication trials (however most tried while engaged in severe alcohol abuse) Prozac, Zoloft, Lexapro, Effexor, Wellbutrin, Abilify, Risperdal, Seroquel, Zyprexa, Latuda, Tegretol, lithium discontinue Seroquel; not helping with sleep Discontinue trazodone; not help him sleep Discontinued Zyprexa; not helping with sleep Time spent discussing smoking cessation with patient: 3 to 10 minutes Status at Discharge Functional status at discharge: independent ambulation Time Spent with Patient Time attestation: Total time managing care of this patient today ____ minutes. Time spent: Greater than 30 minutes Discharge Plan Discharge Anticipated Discharge Date/Time: 10/22/22 14:46 Patient Disposition: Home, Self-Care Discharge Diagnosis: MDD, recurrent, moderate in full remission Referrals: Clinical and Support Options Intake [Other] - 10/30/22 11:00 am (This is an intake for therapy and your medication provider, during the intake let her know you would like CSP services (casework) and a assistant men's soccer coach/services. Kaley Burnett is the name if the intake provider her number [phone].) Partial Hospitalization and Intensive Outpatient Program [Other] - 1 Week (Referral has been sent please follow up once discharged for intake appointment. ) Ladonna Kenny MD [Primary Care Provider] - 10/31/22 11:30 am (IN OFFICE) Discharge Medications: New nicotine (polacrilex) 4 mg Lozenge 4 mg buccal Q2H PRN (Reason: Nicotine Cravings) 30 Days Qty: 81 0RF bupropion HCl 300 mg Tablet Extended Release 24 Hr 300 mg PO DAILY 30 Days Qty: 30 0RF chlorpromazine 50 mg tablet 50 mg PO BEDTIME PRN (Reason: insomnia) 30 Days Qty: 30 0RF gabapentin 600 mg tablet 600 mg PO TID 30 Days Qty: 90 0RF disulfiram 250 mg tablet 500 mg PO DAILY 9 Days Qty: 18 0RF Rx Instructions: take 2 tabs daily (500mg) for 9 days; then take 1 tab (250mg) daily fluoxetine [Prozac] 10 mg capsule 10 mg PO DAILY 30 Days Qty: 30 0RF disulfiram 250 mg tablet 250 mg PO DAILY 30 Days Qty: 30 0RF Rx Instructions: start on 11/01/22 clonazepam 0.5 mg tablet 0.5 mg PO BID 30 Days Qty: 60 0RF Changed zolpidem 10 mg tablet 10 mg PO BEDTIME PRN (Reason: insomnia) 30 Days Qty: 30 0RF Discontinued hydroxyzine pamoate 50 mg capsule 1 cap PO TID PRN (Reason: anxiety) quetiapine 100 mg tablet 1 tab PO BEDTIME temazepam 15 mg capsule 1 cap PO BEDTIME lithium carbonate 600 mg capsule 1 cap PO BEDTIME gabapentin 300 mg capsule 1 cap PO TID Discharge Orders: Discharge Order (Routine); Ordered 10/22/22 Ordered By: Nikolas Lopez Diet: Regular diet Activity on Discharge: As tolerated Stand Alone Forms: Patient Portal Discharge page, Community Support Care Plan Goals: Maintain mood and safe behaviors Take medications as prescribed Continue to pursue sobriety Practice coping skills Continue with outpatient providers and reach out to them as needed Health Concerns: Mood stability and behaviors Sobriety Plan of Treatment: Follow up with your PCP, psychiatric provider and other outpatient providers regarding above concerns Take medications as prescribed Assessment: Risk assessment at time of discharge:? Patient was interviewed prior to discharge and found to be fully oriented and without any SI or HI. Patient has insight and demonstrates good judgment in terms of wanting to pursue treatment. Patient is not in imminent risk of harm to self or others and has a safety plan that includes presenting to the closest ER or calling 911 if feeling unsafe.? Patient has been observed closely by nursing and unit staff throughout admission; patient has not engaged in any behaviors that suggest dangerousness to self or others and has demonstrated appropriate behaviors and impulse control Discharge Date/Time: 10/22/22 16:11
== END 2022-10-22 16:11 | disposition home or self-care (01) | DRG 885 ==
PROVIDERS: Social Worker; Admitting Provider Psychiatry & Neurology Psychiatry; PCP Internal Medicine; Visit Provider Psychiatry & Neurology Psychiatry
DX: F33.2 Major depressive disorder, recurrent severe without psychotic features (principal); F10.239 Alcohol dependence with withdrawal, unspecified; F43.10 Post-traumatic stress disorder, unspecified; F17.210 Nicotine dependence, cigarettes, uncomplicated; Z62.810 Personal history of physical and sexual abuse in childhood; Z71.6 Tobacco abuse counseling; Z88.2 Allergy status to sulfonamides; Z79.899 Other long term (current) drug therapy
CPT/HCPCS: 36415; 80053; 80061; 80076; 82607; 82746; 83036; 84443; 93005